=== PATIENT | male | born 1935 | race Caucasian/White ===

== ENCOUNTER 2016-12-11 11:37 | Inpatient (IN) | payer MEDICARE ==
[~2016-12-11] VITALS: Ht 165.1 cm; Wt 81.2 kg
[~2016-12-11 11:37] MED LIST: ALPRAZOLAM0.5 M1 PO; AMBIEN10 MG OR; AMLODIPINE BESYL5 MG PO; AMOXICILLIN/CL875 MG PO; ASPIRIN CHEWABL81 MG PO; ATORVASTATIN CA20 MG PO; AUGMENTINES600 PO; BABY ASPIRIN81 MG OR; BRILINTA90 MG PO; CELEBREX200 MG OR; CELEBREX200 MG PO; CITALOPRAM20 MG PO; CLONIDINE0.1 MG PO; CYANOCOBALAM1000 MCG IJ; CYANOCOBALAM1000 MCG IM; DARVOCET-N 100100 MG OR; DESYREL50 MG/TAB PO; DIAZEPAM2 M1 PO; DIAZEPAM2 MG OR; DIAZEPAM2 MG PO; DONEPEZIL5 MG PO; DULCOLAX5 MG PO; DUONEB INH; FINASTERIDE5 MG PO; FISH OIL500 MG OR; FISH OIL600 MG PO; FLOMAX0.4 MG OR; FLUARIX QUADRIV1 IN1 IM; FLUARIX QUADRIV1 INJ IM; FUROSEMIDE20 MG OR; GLUCOSAMINE1 TA1 OR; GLUCOSAMINE500 M1 PO; LEVOTHYROXIN25 MC1 PO; LIPITOR20 MG PO; LIPITOR80 MG PO; LISINOPRIL20 M1 PO; MECLIZINE25 MG PO; METO25TAB PO; METOPROL TAR25 M1 PO; MILK OF MAG30 ML/UDC PO; MIRALAX3350 NF PO; MULT VITAMI1 OR; MULTI 501 PO; MULTIVITAM10 PO; NYSTATIN100000 M1 PO; OXYBUTYNIN5 MG PO; PAROXETINE20 MG PO; PRAVASTATIN20 MG PO; PRESERVISION PO; PREVACID30 M1 OR; PROSCAR OR; RAPAFLO8 MG OR; REMERON30 MG OR; RISPERDAL2 MG PO; SIMVASTATIN20 MG OR; SIMVASTATIN20 MG PO; SLOW RELEASE IR45 MG PO; TAMSULOSIN0.4 MG PO; TRAMADOL HCL50 MG PO; TRANDATE200 MG OR; ULTRAM50 M1 PO; VALIUM2 MG PO; VESICARE10 MG PO; VITAMIN B-121000 MCG PO; VITAMIN D1000 UNI1 OR; ZOLPIDEM5 M1 PO; ZPAK PO; [UNRECOGNIZED DRUG - OTHER] PO; [UNRECOGNIZED DRUG - OTHER] PO
[2016-12-11 12:15] LABS: HEMATOCRIT 35.7 % (39.0-50.0); HEMOGLOBIN 11.8 g/dl (14.0-18.0); IMMATURE GRANULOCYTES 0.7 % (0.0-1.0); MEAN CELL VOLUME 94.2 fL CALC (80.0-100.0); MEAN CORPUSCULAR HGB 31.1 pG CALC (26.0-32.0); MEAN CORPUSCULAR HGB CONC 33.1 g/L CALC (32.0-36.0); NEUT# 3.48 thou/uL (1.82-7.42); RED BLOOD COUNT 3.79 mill/uL (4.70-6.10); RED CELL DISTRI WIDTH 12.2 % (11.5-15.5)
[2016-12-11 12:36] LABS: ALBUMIN 3.8 g/dL (3.2-5.0); ALKALINE PHOSPHATASE 102 u/l (38-126); BILIRUBIN, TOTAL 0.5 mg/dL (0.0-1.4); BUN 14 mg/dL (8-23); BUN/CREATININE RATIO 12 (12-20 (CALC)); CALCIUM 8.5 mg/dL (8.4-10.2); CARBON DIOXIDE 26 mmol/l (22-30); CHLORIDE 99 mmol/l (95-108); CREATININE 1.2 mg/dL (0.7-1.3); GFR 58 ML/MIN (>=60 (CALC)); GFR FOR AFR.AMER. > 60 ML/MIN (>=60 (CALC)); GLUCOSE 136 mg/dL (82-115); SGOT/AST 34 u/l (19-48); SGPT/ALT 88 u/l (11-66); SODIUM 133 mmol/l (137-146); TOTAL PROTEIN 6.3 g/dL (6.3-8.2)
[2016-12-11 12:39] LABS: ANION GAP 14 (6-22 (CALC)); POTASSIUM 5.7 mmol/l (3.5-5.1)
[2016-12-11 12:47] LABS: MYOGLOBIN 41 ng/mL (0 - 121)
[2016-12-11 16:20] VITALS: BP 186/90
[2016-12-11 18:57] VITALS: BP 148/85
[2016-12-11 23:47] VITALS: BP 146/79
[2016-12-12 03:59] VITALS: BP 159/84
[2016-12-12 07:43] VITALS: BP 138/67
[2016-12-12 08:32] LABS: ANION GAP 10 (6-22 (CALC)); BUN 15 mg/dL (8-23); BUN/CREATININE RATIO 15 (12-20 (CALC)); CALCIUM 8.5 mg/dL (8.4-10.2); CARBON DIOXIDE 30 mmol/l (22-30); CHLORIDE 100 mmol/l (95-108); GFR > 60 ML/MIN (>=60 (CALC)); GFR FOR AFR.AMER. > 60 ML/MIN (>=60 (CALC)); GLUCOSE 102 mg/dL (82-115); POTASSIUM 4.5 mmol/l (3.5-5.1); SODIUM 136 mmol/l (137-146)
[2016-12-12 11:00] VITALS: BP 162/62
[2016-12-12] MEDS ORDERED: METOPROL TAR25 M1 PO (12:10)
[2016-12-12] MEDS ORDERED: TRAZODONE50 MG PO (12:11)
[2016-12-12] MEDS ORDERED: SINGULAIR10 MG PO (12:14)
[2016-12-12] MEDS ORDERED: NAMENDA10 MG PO (12:14)
[2016-12-12] MEDS ORDERED: OLANZAPINE ODT15 MG PO (12:14)
[2016-12-12] MEDS ORDERED: PEPCID20 MG PO (12:15)
[2016-12-12] MEDS ORDERED: CELEBREX100 M1 PO (12:15)
[2016-12-12] MEDS ORDERED: FLUOXETINE40 MG PO (12:15)
[2016-12-12] MEDS ORDERED: LEVOTHYROXIN25 MC1 PO (12:16)
[2016-12-12 16:00] VITALS: BP 171/86
[2016-12-12 19:58] VITALS: BP 130/74
[2016-12-12 23:52] VITALS: BP 164/84
[2016-12-13 02:52] VITALS: BP 160/62
[2016-12-13 06:23] LABS: HEMOGLOBIN 11.6 g/dl (14.0-18.0); MEAN CELL VOLUME 94.3 fL CALC (80.0-100.0); MEAN CORPUSCULAR HGB 31.3 pG CALC (26.0-32.0); MEAN CORPUSCULAR HGB CONC 33.1 g/L CALC (32.0-36.0); RED BLOOD COUNT 3.71 mill/uL (4.70-6.10); RED CELL DISTRI WIDTH 12.3 % (11.5-15.5)
[2016-12-13 06:41] LABS: ANION GAP 13 (6-22 (CALC)); BUN 17 mg/dL (8-23); BUN/CREATININE RATIO 19 (12-20 (CALC)); CALCIUM 8.7 mg/dL (8.4-10.2); CARBON DIOXIDE 28 mmol/l (22-30); CHLORIDE 100 mmol/l (95-108); CREATININE 0.9 mg/dL (0.7-1.3); GFR > 60 ML/MIN (>=60 (CALC)); GFR FOR AFR.AMER. > 60 ML/MIN (>=60 (CALC)); GLUCOSE 118 mg/dL (82-115); POTASSIUM 4.4 mmol/l (3.5-5.1); SODIUM 137 mmol/l (137-146)
[2016-12-13 09:15] VITALS: BP 147/79
[2016-12-13 11:02] VITALS: BP 142/75
[2016-12-13] MEDS ORDERED: PREDNISONE10 MG PO (15:00)
[2016-12-13 15:20] VITALS: BP 125/71
[2016-12-13] MEDS ORDERED: IPRATROPIU0.5 MG/3 M NEB (17:21)
[2016-12-13] MEDS ORDERED: NEBULIZER COMPRESSOR (17:21)
== END 2016-12-13 19:11 | disposition home or self-care (01) | DRG 917 ==
LOC: ED 11:37 → ED-I 12:53 → ED 14:43 → MS2 14:44
PROVIDERS: Emergency Medicine; ADMIT Internal Medicine; ATTEND Internal Medicine
DX: T46.4X1A Poisoning by angiotensin-converting-enzyme inhibitors, accidental (unintentional), initial encounter (principal); J96.02 Acute respiratory failure with hypercapnia; J96.01 Acute respiratory failure with hypoxia; E87.1 Hypo-osmolality and hyponatremia; E87.5 Hyperkalemia; F03.90 Unspecified dementia, unspecified severity, without behavioral disturbance, psychotic disturbance, mood disturbance, and anxiety; T46.5X1A Poisoning by other antihypertensive drugs, accidental (unintentional), initial encounter; I10 Essential (primary) hypertension; E03.9 Hypothyroidism, unspecified; E78.5 Hyperlipidemia, unspecified; I25.10 Atherosclerotic heart disease of native coronary artery without angina pectoris; F41.1 Generalized anxiety disorder; F32.9 Major depressive disorder, single episode, unspecified; J44.9 Chronic obstructive pulmonary disease, unspecified; G47.00 Insomnia, unspecified; Z95.5 Presence of coronary angioplasty implant and graft; Z87.891 Personal history of nicotine dependence

== ENCOUNTER 2018-04-17 15:42 | Inpatient (IN) | payer MEDICARE ==
[~2018-04-17] VITALS: Ht 162.6 cm; Wt 72.6 kg
[~2018-04-17 15:42] MED LIST changes: +CELEBREX100 M1 PO; +FLUOXETINE40 MG PO; +IPRATROPIU0.5 MG/3 M NEB; +NAMENDA10 MG PO; +NEBULIZER COMPRESSOR; +OLANZAPINE ODT15 MG PO; +PEPCID20 MG PO; +PREDNISONE10 MG PO; +SINGULAIR10 MG PO; +TRAZODONE50 MG PO
--- NOTE | 2018-04-17 15:57 | NUR ---
PT TO ROOM # 14 VIA W/C
--- NOTE | 2018-04-17 16:00 | NUR ---
ASSIST TO POSITION OF COMFORT. TO BED WITHOUT DIFFICULTY
[2018-04-17 16:41] LABS: HEMATOCRIT 36.9 % (39.0-50.0); IMMATURE GRANULOCYTES 0.4 % (0.0-5.0); MEAN CELL VOLUME 92.5 fL CALC (80.0-100.0); MEAN CORPUSCULAR HGB 30.1 pG CALC (26.0-32.0); MEAN CORPUSCULAR HGB CONC 32.5 g/L CALC (32.0-36.0); NEUT# 3.36 thou/uL (1.82-7.42); RED BLOOD COUNT 3.99 mill/uL (4.70-6.10); RED CELL DISTRI WIDTH 12.5 % (11.5-15.5)
[2018-04-17 16:42] LABS: URINE BILIRUBIN - DIPSTICK NEGATIVE (NEGATIVE); URINE BLOOD DIPSTICK NEGATIVE (NEGATIVE); URINE COLOR YELLOW; URINE GLUCOSE - DIPSTICK NEGATIVE (NEGATIVE); URINE KETONE NEGATIVE (NEGATIVE); URINE LEUK ESTERASE NEGATIVE (NEGATIVE); URINE NITRITE - DIPSTICK NEGATIVE (Negative); URINE PROTEIN - DIPSTICK NEGATIVE (NEG-TRACE); URINE UROBILINOGEN - DIPSTICK 0.2 E.U./dL (0.2)
[2018-04-17] MEDS ORDERED: LEVOTHYROXIN75 MC1 PO (16:47)
[2018-04-17] MEDS ORDERED: TAMSULOSIN HCL0.4 MG PO (16:47)
[2018-04-17] MEDS ORDERED: LOPRESSOR25 M1 PO (16:48)
[2018-04-17] MEDS ORDERED: OLANZAPINE15 MG PO (16:49)
[2018-04-17] MEDS ORDERED: SIMBRINZA1 SUS OS (16:50)
[2018-04-17] MEDS ORDERED: LATANOPROST0.005 % OS (16:50)
[2018-04-17] MEDS ORDERED: SENNA-S1 TAB PO (16:51)
[2018-04-17] MEDS ORDERED: FINASTERIDE5 MG PO (16:52)
--- NOTE | 2018-04-17 17:00 | NUR ---
MEDICATED FOR BP NOTED. ER MD UPDATED ON CONDITION
[2018-04-17 17:02] LABS: ALBUMIN 3.5 g/dL (3.2-5.0); ALKALINE PHOSPHATASE 92 u/l (38-126); ANION GAP 10 (6-22 (CALC)); BILIRUBIN, TOTAL 0.4 mg/dL (0.0-1.4); BUN 9 mg/dL (8-23); BUN/CREATININE RATIO 11 (12-20 (CALC)); CARBON DIOXIDE 29 mmol/l (22-30); CHLORIDE 100 mmol/l (95-108); CREATININE 0.8 mg/dL (0.7-1.3); GFR > 60 ML/MIN (>=60 (CALC)); GFR FOR AFR.AMER. > 60 ML/MIN (>=60 (CALC)); LIPASE 98 u/l (23-300); POTASSIUM 4.3 mmol/l (3.5-5.1); SGOT/AST 27 u/l (19-48); SODIUM 134 mmol/l (137-146); TOTAL PROTEIN 6.2 g/dL (6.3-8.2)
--- NOTE | 2018-04-17 18:00 | NUR ---
TO CT SCAN VIA STRETCHER.
--- NOTE | 2018-04-17 18:49 | NUR ---
BEDSIDE REPORT TO SHANNON MENON, CARE RELINQUISHED
--- NOTE | 2018-04-17 18:53 | NUR ---
PT TO BE ADMITTED WAITING ON ORDERS.
--- NOTE | 2018-04-17 19:16 | NUR ---
BP DOWN TO 135/62, CARDENE DRIP STOPPED PER DR HERNANDEZ.
--- NOTE | 2018-04-17 19:38 | NUR ---
REPORT GIVEN TO SINAN MATUTE. STILL WAITING ON ORDERS
--- NOTE | 2018-04-17 20:00 | NUR ---
Admission Note Report Given to: JUJU Transported by: Wheelchair X Stretcher Transported with: X Nurse Transporter X Patent IV O2 X Entry Level Sales Associate [id number] URINE DRAINED FROM NUNEZ BAG.
--- NOTE | 2018-04-17 20:10 | NUR ---
PT. ARRIVES VIA STRETCHER FROM ER. AWAKE, ALERT, ORIENTED X 3. HOLT. VIKTORIYA. SLOW STEADY GAIT FROM ER STRETCHER TO STANDING SCALE AND THEN TO ICU BED 5. RESPS EVEN AND UNLABORED. SKIN WARM AND DRY. AFEBRILE. PT. REPOSITIONED FOR COMFORT. DENIES ABD PAIN AT THIS TIME. STATES HIS PAIN WAS LOW, PUBIC AREA IN NATURE AND IS RESOLVED SINCE NUNEZ CATHETER PLACEMENT. BP ELEVATED ON ARRIVAL AT 180 SYSTOLIC. WILL CONTINUE TO MONITOR. PULSES INTACT. BOWEL SOUND PRESENT. S1,S2. NSR. CALL LIGHT AND BED CONTROLS EXPLAINED TO PATIENT AND CALL LIGHT PLACED WITHIN REACH. WILL CONTINUE TO ASSESS.
[2018-04-17 20:15] VITALS: BP 188/82
[2018-04-17 20:30] VITALS: BP 154/78
[2018-04-17 20:45] VITALS: BP 152/75
[2018-04-17 21:00] VITALS: BP 137/72
[2018-04-17 22:00] VITALS: BP 128/67
--- NOTE | 2018-04-17 22:28 | NUR ---
PT. RESTING IN BED WITH EYES CLOSED IN NO DISTRESS. BP REMAINS STABLE, WILL CONTINUE TO MONITOR.
--- NOTE | 2018-04-17 23:06 | NUR ---
PT. REPOSITIONED TO LT. SIDE FOR COMFORT. DENIES COMPLAINTS OF PAIN OR OTHER NEED AT THIS TIME. CALL LIGHT REMAINS WITHIN REACH. BP/HR STABLE. WILL CONTINUE TO MONITOR.
--- NOTE | 2018-04-17 23:07 | NUR ---
PT. RESTING IN BED WITH EYES CLOSED IN NO DISTRESS. CALL LIGHT REMAINS WITHIN REACH. BP SLIGHTLY LOW AT 97 SYSTOLIC. WILL CONTINUE TO MONITOR.
[2018-04-18] VITALS (12 sets, daily range): BP systolic 92–173; BP diastolic 57–113
--- NOTE | 2018-04-18 00:24 | NUR ---
LAB AT BEDSIDE AT THIS TIME TO DRAW PATIENT. PT. REMAINS EASILY AROUSABLE TO LIGHT VERBAL STIMULI. CALL LIGHT REMAINS WITHIN REACH. WILL CONTINUE TO MONITOR.
--- NOTE | 2018-04-18 02:15 | NUR ---
PT. REMAINS STABLE ON THE MONITOR. SINUS GEOFF IN THE 50'S. REPOSITIONED FOR COMFORT. PT. SLIGHTLY HYPOTENSIVE AT THIS TIME. RESTING WITH EYES CLOSED. DENIES COMPLAINTS OF PAIN OR NEED. WILL CONTINUE TO MONITOR.
--- NOTE | 2018-04-18 04:05 | NUR ---
PT. PROVIDED WITH WATER AT THIS TIME. ASSISTED TO TURN TO RT. SIDE. PT. DENIES COMPLAINTS OF PAIN OR NEED AT THIS TIME. BP SLIGHTLY LOW AT THIS TIME. WILL CONTINUE TO CLOSELY MONITOR. CALL LIGHT PLACED BACK WITHIN REACH.
[2018-04-18 06:33] LABS: CHOLESTEROL HDL RATIO 3.7 (<4.4 (CALC))
--- NOTE | 2018-04-18 07:00 | NUR ---
pt awake in bed; no apparent distress noted; assessment completed at this time; pt alert to person; oriented to month after several prompts; slow to respond to questions asked per staff; pt admits to pain all over "from lying in the bed too long"; repositioned for comfort; denies n/v; resp even and unlabored; lungs clear bilat; skin color wnl; ra; hr reg; strong pulses; no edema noted; sr on monitor; abd soft with bs present; no bm noted per functional tester typewriters; pt admits to abd pain when palpated to lower quads; yancey to gravity draining clear yellow urine; cath johnson intact; #22 flushed and patent to lfa; no redness or edema noted at site; plan of care/ meds explained; repositioned; call light within reach; will continue to monitor
--- NOTE | 2018-04-18 07:30 | NUR ---
awake; up to bsc as per request; weak slow gait noted; no bm noted per fiction and nonfiction prose writer, only flatus; complete linen change; assisted bath and catheter care per fiction and nonfiction prose writer; back to bed wiht all monitoring attachments explained and reconnected; call light within reach; will continue to monitor
--- NOTE | 2018-04-18 08:45 | NUR ---
am meds explained and administered; repositioned for comfort; medicated with tylenol for back/general discomfort; call light within reach; will continue to monitor
--- NOTE | 2018-04-18 09:30 | NUR ---
daughter present at bedside; copy of living will/poa placed on chart; daughter updated in status; will continue to monitor
--- NOTE | 2018-04-18 10:14 | NUR ---
awake in bed; family x2 present at bedside; no distress noted; pt admits to no relief from tylenol; repositioned; iv intact; call light within reach; will continue to monitor
--- NOTE | 2018-04-18 11:00 | NUR ---
Dr Parisi present at bedside to assess pt and discuss plan of care
--- NOTE | 2018-04-18 11:13 | NUR ---
PT Emma called per financial underwriter in regards to swallow eval order; therapist confirmed as available today
[2018-04-18 11:19] LABS: HEMATOCRIT 34.6 % (39.0-50.0); HEMOGLOBIN 11.3 g/dl (14.0-18.0); IMMATURE GRANULOCYTES 0.2 % (0.0-5.0); MEAN CORPUSCULAR HGB 30.1 pG CALC (26.0-32.0); MEAN CORPUSCULAR HGB CONC 32.7 g/L CALC (32.0-36.0); NEUT# 3.09 thou/uL (1.82-7.42); RED BLOOD COUNT 3.76 mill/uL (4.70-6.10); RED CELL DISTRI WIDTH 12.9 % (11.5-15.5)
--- NOTE | 2018-04-18 11:19 | NUR ---
per PT Jenkins speech/swallow eval order received
[2018-04-18 11:22] LABS: ALBUMIN 2.9 g/dL (3.2-5.0); ALKALINE PHOSPHATASE 80 u/l (38-126); BILIRUBIN, TOTAL 0.4 mg/dL (0.0-1.4); BUN 9 mg/dL (8-23); BUN/CREATININE RATIO 12 (12-20 (CALC)); CARBON DIOXIDE 26 mmol/l (22-30); CREATININE 0.7 mg/dL (0.7-1.3); GFR > 60 ML/MIN (>=60 (CALC)); GFR FOR AFR.AMER. > 60 ML/MIN (>=60 (CALC)); POTASSIUM 3.9 mmol/l (3.5-5.1); SGOT/AST 23 u/l (19-48); SODIUM 134 mmol/l (137-146); TOTAL PROTEIN 5.4 g/dL (6.3-8.2)
[2018-04-18 11:23] LABS: ANION GAP 12 (6-22 (CALC)); CHLORIDE 100 mmol/l (95-108)
--- NOTE | 2018-04-18 12:03 | NUR ---
awake in bed; offers no complaints; repositions self frequently; iv patent; fluids infusing without complication; no redness or edema noted at site; sb occ pvc on monitor; yancey to gravity; NPO continues; call light within reach; will continue to monitor
--- NOTE | 2018-04-18 13:23 | NUR ---
Namita Speech Therapist at bedside for swallow eval
--- NOTE | 2018-04-18 13:50 | NUR ---
Mr. Arizmendi is an 83 year old male who was admitted via ER with complaints of abdominal pain. He has the diagnoses of SIADH, major depression, pseudodementia, osteoarthritis, hyperlipedemia, dyspnea upon exertion with hypoxia and hypercapnia, COPD and HTN. An order was received for dysphagia evaluation due to coughing with intake and reports of a history of swallowing difficulties. Upon entering room, Mr. Arizmendi was sleeping but easily aroused to auditory stimulus. He was oriented to self and month only. He could not provide his location or the reason for his hospitalization. Oral Mechanism exam revealed patient to be edentulous with self report of use of dentures. Lip seal was midline and adequate. ROM of lips and tongue were WNL. Cough was strong and could be elicited volitionally. Right cheek appeared slightly swollen and red but patient denied pain with palpation. Patient was given a 1 mL of water and swallow was delayed without coughing. Patient was allowed 1 small sip of water via straw and though swallow was audible, no coughing was observed and vocal quality was clear. Patient was given 1 tsp of applesauce and he manipulated the bolus in his mouth and swallowed efficiently. He was fed 3 oz of applesauce with time to clear and swallow between bolus and no coughing or overt signs of aspiration were observed. Oxygen saturation remained at 96 throughout evaluation. Recommendations: Advance to puree diet with bedside assistance. Position at 90 degree angle for all intake and for 30 minutes after intake. Verbal cues to cough and clear if "wet" quality to voice is observed. Verbal cues to dry swallow between bolus/sips as needed. Prompt to sweep bucal cavitites with tongue to clear residue after meals and perform oral care frequently. When dentures are available, soft mechanical foods may be attempted with the above precautions. Discontinue soft mechanical if overt choking, coughing, wheezing, or persistent vocal quality is observed. Contact HATCHERY HELPER via telephone prn. Number on file at nurses' station. Thank you for this referral, Namita Padilla M.A., [facility]-HATCHERY HELPER
--- NOTE | 2018-04-18 13:58 | NUR ---
awake in bed; complaints of back pain; pt to be medicated with tramadol; iv patent; fluids infusing without complication; no redness or edema noted at site; yancey to gravity; sr on monitor; repositioned self; call light within reach; will continue to monitor
--- NOTE | 2018-04-18 14:56 | NUR ---
Dr Parisi informed of speech therapist recommendations; pureed diet to be ordered
--- NOTE | 2018-04-18 16:00 | NUR ---
awake in bed; offers no complaints; no distress noted; resp even and unlabored; iv patent; fluids infusing without complication; no redness or edema noted at site; sr-sb on monitor; call light within reach; will continue to monitor
--- NOTE | 2018-04-18 17:45 | NUR ---
awake in bed; repositioned to high tellez's position for dinner; pt offers no complaints; no distress noted; sr on monitor; yancey to gravity; bed in lowest position; call light within reach
--- NOTE | 2018-04-18 19:15 | NUR ---
awake. denies c/o. awake overnight monitor shows sinus rhythm pvcs. #22 lfa d51/2ns infusing @ 75cchr. yancey cath in place. ueine clear yellow. fall precautions cont.
[2018-04-19] VITALS (8 sets, daily range): BP systolic 110–172; BP diastolic 56–82
--- NOTE | 2018-04-19 00:01 | NUR ---
eyes closed. no distress. gambling monitor shows sinus rhythm pvcs.
--- NOTE | 2018-04-19 04:00 | NUR ---
eyes closed. resp even & unlabored. no apparent distress. night monitor shows sinus violeta pvcs.
--- NOTE | 2018-04-19 05:00 | NUR ---
lab here. blood drawn.
[2018-04-19 05:25] LABS: ALBUMIN 2.8 g/dL (3.2-5.0); ALKALINE PHOSPHATASE 75 u/l (38-126); ANION GAP 10 (6-22 (CALC)); BILIRUBIN, TOTAL 0.4 mg/dL (0.0-1.4); BUN 8 mg/dL (8-23); BUN/CREATININE RATIO 12 (12-20 (CALC)); CARBON DIOXIDE 28 mmol/l (22-30); CHLORIDE 97 mmol/l (95-108); CREATININE 0.7 mg/dL (0.7-1.3); GFR > 60 ML/MIN (>=60 (CALC)); GFR FOR AFR.AMER. > 60 ML/MIN (>=60 (CALC)); MAGNESIUM 1.8 mg/dL (1.6-2.3); POTASSIUM 3.6 mmol/l (3.5-5.1); SGOT/AST 19 u/l (19-48); SODIUM 131 mmol/l (137-146); TOTAL PROTEIN 5.2 g/dL (6.3-8.2)
[2018-04-19 05:41] LABS: HEMATOCRIT 33.3 % (39.0-50.0); HEMOGLOBIN 11.1 g/dl (14.0-18.0); IMMATURE GRANULOCYTES 0.4 % (0.0-5.0); MEAN CELL VOLUME 90.7 fL CALC (80.0-100.0); MEAN CORPUSCULAR HGB 30.2 pG CALC (26.0-32.0); MEAN CORPUSCULAR HGB CONC 33.3 g/L CALC (32.0-36.0); NEUT# 2.34 thou/uL (1.82-7.42); RED BLOOD COUNT 3.67 mill/uL (4.70-6.10); RED CELL DISTRI WIDTH 12.2 % (11.5-15.5)
--- NOTE | 2018-04-19 07:15 | NUR ---
pt awake in bed; no apparent distress noted; pt offers no complaints; assessment completed at this time; pt alert to person, month and city; denies pain; no n/v noted; resp even and unlabored; lungs clear; skin color wnl; ra; hr reg; strong pulses; no edema noted; sr on monitor; abd soft with bs present; no bm noted per physician underwriter; pt continues with passing flatus; yancey to gravity draining well; cath johnson intact; #22 in lfa patent with ivf infusing without complication; no redness or edema noted at site; plan of care/ am meds explained; pt repositioned for comfort; call light within reach; will continue to monitor
--- NOTE | 2018-04-19 08:13 | NUR ---
awake; up to bsc; no apparent distress noted; pt offers no complaints; iv patent; no redness or edema noted at site; call light within reach; will continue to monitor
--- NOTE | 2018-04-19 08:55 | NUR ---
am meds explained and administered; assisted to bsc for bm; call light within reach; will continue to monitor
--- NOTE | 2018-04-19 10:00 | NUR ---
resting in bed with eyes closed; no apparent distress noted; sb 53 on monitor; yancey to gravity; iv patent; fluids infusing withuot complication; no redness or edema noted at site; call light within reach; will continue to monitor
--- NOTE | 2018-04-19 10:39 | NUR ---
Dr Padilla present at bedside to assess pt and discuss plan of care
--- NOTE | 2018-04-19 11:40 | NUR ---
moe Issa present at bedside; daughter requesting pt be discharged to rehab; mal Rodriguez informed; will notify
--- NOTE | 2018-04-19 12:15 | NUR ---
awake sitting on side of bed eating lunch; no distress noted; pt offers no complaints; iv patent; fluids infusing without complication; no redness or edema noted at site; yancey to gravity; sb on monitor; daughter Maegan present at bedside; will continue to monitor
--- NOTE | 2018-04-19 13:57 | NUR ---
resting in bed with eyes closed; easily aroused; offers no complaints; denies pain; resp even and unlabored; iv patent; no redness or edema noted at site; yancey to gravity; sb 44-51 on monitor; call light within reach; will continue to monitor
--- NOTE | 2018-04-19 14:18 | NUR ---
report given to Simone Dick RN
--- NOTE | 2018-04-19 14:50 | NUR ---
pt transferred to med surg tele room 291 via wc with personal items; update given to Simone Dick RN
--- NOTE | 2018-04-19 15:55 | NUR ---
PT CAME FROM ICU VIA WHEELHAIR AND DEEP TISSUE MASSAGE THERAPIST IN ROOM OBTAIN VS. REPS EVEN AND UNLABORED. TELE IN PLACE. IVF INFUSING WELL . PT IS A&O X1. BED ALARM IN PLACE FOR SAFETY. SAFETY PRECAUTIONS REINOFRCED AND CALL LIGHT IN REACH.
--- NOTE | 2018-04-19 20:00 | NUR ---
PATIENT RESTING IN BED AT THIS TIME-AWAKE ALERT AND ORIENTED TO PERSON. PATIENT WITH NO COMPLAINTS AT THIS TIME. TELE MONITOR IN PLACE. IV SIT TO LEFT FOREARM INTACT WITH IVF D51/2NS PATENT AND INFUSING AT 75CC/HR. SITE APPEARS HEALTHY AT THIS TIME. NUNEZ CATH PATENT AND DRAINING AYALA URINE. BED ALARM IN PLACE FOR PATIENT SAFETY. SAFETY PRECAUTIONS REINFORCED. WITH PATIENT. CALL LIGHT IN REACH. WILL CONT TO MONITOR.
--- NOTE | 2018-04-19 22:30 | NUR ---
RECIEVED CALL FROM ANNA IN ER-PATIENT CHANGED RHYTHM TO A-FIB 6O'S. EKG DONE AND SHOWS SR WITH 1DEGREE AV BLOCK. PATIENT IS ASYMPTOMATIC AT THIS TIME. CALL LIGHT IN REACH. WILL CONT TO MONITOR.
[2018-04-20] VITALS (7 sets, daily range): BP systolic 98–180; BP diastolic 62–83
--- NOTE | 2018-04-20 04:00 | NUR ---
APPEARS SLEEPING AT THIS TIME WITH EYES CLOSED. RESP ARE EVEN AND UNLABORED. NUNEZ PATENT AND DRAINING CLEAR YELLOW URINE. CALL LIGHT IN REACH. WILL CONT TO MONITOR.
[2018-04-20 05:05] LABS: HEMATOCRIT 32.5 % (39.0-50.0); MEAN CELL VOLUME 90.3 fL CALC (80.0-100.0); MEAN CORPUSCULAR HGB 30.6 pG CALC (26.0-32.0); MEAN CORPUSCULAR HGB CONC 33.8 g/L CALC (32.0-36.0); RED BLOOD COUNT 3.6 mill/uL (4.70-6.10); RED CELL DISTRI WIDTH 12.3 % (11.5-15.5)
[2018-04-20 05:14] LABS: ANION GAP 9 (6-22 (CALC)); BUN 8 mg/dL (8-23); BUN/CREATININE RATIO 12 (12-20 (CALC)); CARBON DIOXIDE 28 mmol/l (22-30); CHLORIDE 99 mmol/l (95-108); CREATININE 0.7 mg/dL (0.7-1.3); GFR > 60 ML/MIN (>=60 (CALC)); GFR FOR AFR.AMER. > 60 ML/MIN (>=60 (CALC)); MAGNESIUM 1.9 mg/dL (1.6-2.3); POTASSIUM 3.9 mmol/l (3.5-5.1); SODIUM 133 mmol/l (137-146)
--- NOTE | 2018-04-20 07:02 | NUR ---
REPORT RECEIVED BY ROSIE. PT IS SLEEPING IN BED WITH NO S/S OF DISTRESS NOTED. CALL LIGHT IN REACH.
--- NOTE | 2018-04-20 08:01 | NUR ---
ASSISTED PT TO SIT IN THE SIDE OF THE BED. ASSESSMENT DONE TELE IN PLACE. PT IS A&O X1. PT DENIES PAIN AT THIS TIME. SETUP PT FOR BREAKFAST. BED ALARM IN PLACE. SAFETY PRECAUTIONS REINFORCED AND CALL LIGHT IN REACH.
--- NOTE | 2018-04-20 09:00 | NUR ---
PT SITTING IN BATHROOM TRYING TO HAVE A BOWEL MOVEMENT. PT WAS ASKED BY MODERN LANGUAGES PROFESSOR IF HE WOULD LIKE TO GET A SHOWER. PT DIDNT KNOW WHAT HE WANTED AT THAT TIME. MODERN LANGUAGES PROFESSOR ASSISTED PT BACK TO BED AFTER NO SUCCESS OF A BOWEL MOVEMENT. MODERN LANGUAGES PROFESSOR GAVE PT PRUNE JUICE AND ORANGE JUICE HEATED UP TO STIMULATE BOWEL MOVEMENT. TOLD PT WE WILL SEE IF THAT DOES THE TRICK. PT UNDERSTOOD. MODERN LANGUAGES PROFESSOR THAN TOLD PT WHEN HE GOES TO TRY AGAIN HAVING A BOWEL MOVEMENT I WILL GET HIM IN THE SHOWER AT THAT TIME. CALL ABDUL IN REACH.
[2018-04-20] MEDS ORDERED: AMLODIPINE BESYL5 MG PO (11:22)
[2018-04-20] MEDS ORDERED: OLANZAPINE5 MG PO (11:25)
[2018-04-20] MEDS ORDERED: SINGULAIR10 MG PO (11:27)
--- NOTE | 2018-04-20 12:23 | NUR ---
ASSISTED PT TO THE BATHROOM WITH NO S/S OF DISTRESS NOTED. CALL LIGHT IN REACH. PT DENIES ANY OTHER NEEDS AT THIS TIME.
--- NOTE | 2018-04-20 16:32 | NUR ---
MEDICATED PT WITH TYLENOL FOR PAIN IN BACK 07/23 SEE EMAR. PT DENIES ANY OTHER NEEDS AT THIS TIME. BED ALARM IN PLACE AND CALL LIGHT IN REACH.
--- NOTE | 2018-04-20 19:30 | NUR ---
PATIENT RESTING IN BED POSITIONED ON LEFT SIDE WITH EYES CLOSED. RESP ARE EVEN AND UNLABORED. TELE MONITOR IN PLACE. NUNEZ CATH PATENT AND DRAINING YELLOW URINE. IV SITE TO LEFT FOREARM INTACT WITH IVF D51/2NS PATENT AND INFUSING AT 75CC/HR. SITE APPEARS HEALTHY AT THIS TIME. BED ALARM IN PLACE FOR PATIENT SAFETY. CALL LIGHT IN REACH. WILL CONT TO MONITOR.
--- NOTE | 2018-04-21 01:11 | NUR ---
PATIENT SOMEWHAT RESTLESS TONIGHT IN BED. NON-PRODUCTIVE COUGH NOTED. PATIENT MEDICATED FOR GENERALIZED PAIN WITH ULTRAM 50MG PO AND FOR SLEEP WITH SONATA 5MG PO. PATIENT REPOSITIONED IN BED. IV SITE TO LEFT FOREARM REMAINS INTACT WITH IVF PATENT AND INFUSING AT 75CC/HR. SITE CONT TO BE HEALTHY. TELE MONITOR IN PLACE. NUNEZ PATENT AND DRAINING YELLOW URINE. BED ALARM IN PLACE FOR PATIENT SAFETY. CALL LIGHT IN REACH. WILL CONT TO MONITOR.
--- NOTE | 2018-04-21 03:44 | NUR ---
PATIENT RESTING QUIETLY IN BED AT THIS TIME. TELE MONITOR IN PLACE. NUNEZ CATH PATENT AND DRAING YELLOW URINE. BED ALARM IN PLACE FOR PATIENT SAFETY. CALL LIGHT IN REACH. WILL CONT NICOLE MONITOR.
[2018-04-21 05:32] VITALS: BP 182/93
[2018-04-21 08:02] VITALS: BP 135/68
--- NOTE | 2018-04-21 08:11 | NUR ---
ASSESSMENT COMPLETED; PT. SITTING UP IN CHAIR EATING BREAKFAST; NO DISTRESS NOTED; ASSESSMENT COMPLETED; NUNEZ CATHETER INTACT AND DRAINING AT GRAVITY LEVEL; PT. UP TO THE BATHRROM AND INSTRUCTED TO PULL CORD WHEN DONE.
--- NOTE | 2018-04-21 08:49 | NUR ---
PT. C/O LOWER BACK PAIN ; MEDICATED WITH ORDERED TRAMADOL; WILL REASSESS; CALL LIGHT IS IN REACH.
--- NOTE | 2018-04-21 10:43 | NUR ---
PT. SITTING UP IN CHAIR WITH NO DISTRESS NOTED; DENIES NEEDS/PAIN. CALL LIGHT IS IN REACH.
[2018-04-21 11:00] VITALS: BP 99/60
--- NOTE | 2018-04-21 11:55 | NUR ---
PT. SITTING UP IN CHAIR; NO DISTRESS NOTED; DENIES NEEDS. CALL LIGHT IS IN REACH.
--- NOTE | 2018-04-21 13:08 | NUR ---
PT. C/O GONZALES AND UPSET STOMACHE D/T CONSTIPATION; MEDICATED WITH ORDERED TYLENOL AND MOM; WILL CONTINUE TO MONITOR.
[2018-04-21] MEDS ORDERED: TRAZODONE HCL50 MG PO (14:47)
[2018-04-21 15:10] VITALS: BP 103/60
--- NOTE | 2018-04-21 16:00 | NUR ---
IV SITE REMOVED; CATHETER TIP IS INTACT; TELEMETRY REMOVED;
--- NOTE | 2018-04-21 16:10 | NUR ---
REPORT CALLED TO RUSSELL JAIME, AT [facility]; ALL QUESTIONS ANSWERED.
== END 2018-04-21 16:34 | DRG 305 ==
LOC: ED 15:42 → ED-I 18:32 → ED 19:02 → ICU 19:03 → MS2 04-19 14:46
PROVIDERS: Family Medicine; Internal Medicine Nephrology; Nurse Practitioner Family; ADMIT Internal Medicine; ATTEND Internal Medicine
PROC: 0T9B70Z Drainage of Bladder with Drainage Device, Via Natural or Artificial Opening (ICD-10-PCS; principal; 2018-04-17)
DX: I16.0 Hypertensive urgency (principal); I10 Essential (primary) hypertension; N40.1 Benign prostatic hyperplasia with lower urinary tract symptoms; R33.8 Other retention of urine; I25.10 Atherosclerotic heart disease of native coronary artery without angina pectoris; G30.9 Alzheimer's disease, unspecified; F02.80 Dementia in other diseases classified elsewhere, unspecified severity, without behavioral disturbance, psychotic disturbance, mood disturbance, and anxiety; R13.10 Dysphagia, unspecified; E03.9 Hypothyroidism, unspecified; K21.9 Gastro-esophageal reflux disease without esophagitis; L27.1 Localized skin eruption due to drugs and medicaments taken internally; T46.1X5A Adverse effect of calcium-channel blockers, initial encounter; F32.9 Major depressive disorder, single episode, unspecified; E78.5 Hyperlipidemia, unspecified; F41.1 Generalized anxiety disorder; J44.9 Chronic obstructive pulmonary disease, unspecified; Z95.5 Presence of coronary angioplasty implant and graft; Z87.11 Personal history of peptic ulcer disease
CPT/HCPCS: J1650; S0164

== ENCOUNTER 2018-04-29 11:22 | Emergency (ER) | payer MEDICARE ==
[~2018-04-29] VITALS: Ht 162.6 cm; Wt 68.2 kg
[~2018-04-29 11:22] MED LIST changes: +LATANOPROST0.005 % OS; +LEVOTHYROXIN75 MC1 PO; +LOPRESSOR25 M1 PO; +OLANZAPINE15 MG PO; +OLANZAPINE5 MG PO; +SENNA-S1 TAB PO; +SIMBRINZA1 SUS OS; +TAMSULOSIN HCL0.4 MG PO; +TRAZODONE HCL50 MG PO
[2018-04-29 14:47] VITALS: BP 141/77
== END 2018-04-29 14:48 ==
LOC: ED 11:22
DX: I95.2 Hypotension due to drugs (principal); T40.2X5A Adverse effect of other opioids, initial encounter; T42.4X5A Adverse effect of benzodiazepines, initial encounter; I10 Essential (primary) hypertension; E78.00 Pure hypercholesterolemia, unspecified; Y92.129 Unspecified place in nursing home as the place of occurrence of the external cause; Z87.440 Personal history of urinary (tract) infections; Z87.01 Personal history of pneumonia (recurrent); Z95.5 Presence of coronary angioplasty implant and graft

== ENCOUNTER 2018-06-25 12:25 | Emergency (ER) | payer MEDICARE ==
[~2018-06-25] VITALS: Ht 162.6 cm; Wt 95.0 kg
[2018-06-25 13:11] LABS: HEMATOCRIT 35.9 % (39.0-50.0); HEMOGLOBIN 11.3 g/dl (14.0-18.0); IMMATURE GRANULOCYTES 0.4 % (0.0-5.0); MEAN CELL VOLUME 94.2 fL CALC (80.0-100.0); MEAN CORPUSCULAR HGB 29.7 pG CALC (26.0-32.0); MEAN CORPUSCULAR HGB CONC 31.5 g/L CALC (32.0-36.0); RED BLOOD COUNT 3.81 mill/uL (4.70-6.10); RED CELL DISTRI WIDTH 12.5 % (11.5-15.5)
[2018-06-25 13:14] LABS: ANION GAP 11 (6-22 (CALC)); BUN 10 mg/dL (8-23); BUN/CREATININE RATIO 11 (12-20 (CALC)); CARBON DIOXIDE 28 mmol/l (22-30); CHLORIDE 100 mmol/l (95-108); CREATININE 0.9 mg/dL (0.7-1.3); GFR > 60 ML/MIN (>=60 (CALC)); GFR FOR AFR.AMER. > 60 ML/MIN (>=60 (CALC)); SODIUM 134 mmol/l (137-146)
[2018-06-25 13:15] LABS: POTASSIUM 5.1 mmol/l (3.5-5.1)
[2018-06-25 13:36] VITALS: BP 165/82
== END 2018-06-25 13:48 | disposition home or self-care (01) ==
LOC: ED 12:25
PROVIDERS: Family Medicine
DX: R53.1 Weakness (principal); I10 Essential (primary) hypertension; Z95.5 Presence of coronary angioplasty implant and graft

== ENCOUNTER 2018-08-19 14:46 | Inpatient (IN) | payer MEDICARE ==
[~2018-08-19] VITALS: Ht 162.6 cm; Wt 69.6 kg
--- NOTE | 2018-08-19 14:48 | NUR ---
TO ROOM 10 VIA W/C
--- NOTE | 2018-08-19 15:00 | NUR ---
NIH COMPLETED BY SELF AND DR HERNANDEZ. 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
--- NOTE | 2018-08-19 15:30 | NUR ---
PT AT RADIOLOGY FOR CT, SOME GEOFF CARDIA NOTED, DAUGHTER REMAINS AT BEDSIDE
[2018-08-19 15:31] LABS: GFR > 60 ML/MIN (>=60 (CALC)); GFR FOR AFR.AMER. > 60 ML/MIN (>=60 (CALC)); HEMATOCRIT 40.1 % (39.0-50.0); HEMOGLOBIN 12.6 g/dl (14.0-18.0); IMMATURE GRANULOCYTES 0.6 % (0.0-5.0); MEAN CELL VOLUME 92.4 fL CALC (80.0-100.0); MEAN CORPUSCULAR HGB CONC 31.4 g/L CALC (32.0-36.0); NEUT# 2.78 thou/uL (1.82-7.42); RED BLOOD COUNT 4.34 mill/uL (4.70-6.10); RED CELL DISTRI WIDTH 12.5 % (11.5-15.5)
[2018-08-19] MEDS ORDERED: ZYRTEC10 MG PO (15:32)
[2018-08-19 15:42] LABS: ANION GAP 13 (6-22 (CALC)); BILIRUBIN, TOTAL 0.3 mg/dL (0.0-1.4); BUN 15 mg/dL (8-23); BUN/CREATININE RATIO 15 (12-20 (CALC)); CARBON DIOXIDE 26 mmol/l (22-30); CHLORIDE 100 mmol/l (95-108); GFR > 60 ML/MIN (>=60 (CALC)); GFR FOR AFR.AMER. > 60 ML/MIN (>=60 (CALC)); LIPASE 85 u/l (23-300); POTASSIUM 4.6 mmol/l (3.5-5.1); SODIUM 134 mmol/l (137-146)
[2018-08-19 15:45] LABS: ALKALINE PHOSPHATASE 117 u/l (38-126); SGOT/AST 40 u/l (19-48)
[2018-08-19] MEDS ORDERED: TIMOLOL 0.5%5 ML OU (15:52)
--- NOTE | 2018-08-19 16:04 | NUR ---
URINAL PLACED FOR PATIENT TO PROVIDE URINE SPECIMENT, PT INSTRUCTED TO CALL WHEN READY
--- NOTE | 2018-08-19 16:15 | NUR ---
PT ABLE TO PROVIDE URINE SPECIMEN VIA URINAL, SPECIMEN SENT TO LAB ORDERED. AT BEDSIDE DISCUSSING PROS AND CONS OF IODINE DYE USAGE FOR CT WITH CONTRAST (PT HAS ALLERGY TO IODINE), DAUGHTER AT BEDSIDE FOR DISCUSSION/DECISION ALL QUESTIONS ANSWERED. PT DECIDES TO TAKE PREVENTIATIVE MEDICATIONS AND HAVE SCNA COMPLETED
[2018-08-19 16:29] LABS: URINE BILIRUBIN - DIPSTICK NEGATIVE (NEGATIVE); URINE BLOOD DIPSTICK NEGATIVE (NEGATIVE); URINE COLOR YELLOW; URINE GLUCOSE - DIPSTICK NEGATIVE (NEGATIVE); URINE KETONE TRACE mg/dL (NEGATIVE); URINE LEUK ESTERASE NEGATIVE (NEGATIVE); URINE NITRITE - DIPSTICK NEGATIVE (Negative); URINE PROTEIN - DIPSTICK NEGATIVE (NEG-TRACE); URINE SPECIFIC GRAVITY 1.025; URINE UROBILINOGEN - DIPSTICK 0.2 E.U./dL (0.2)
--- NOTE | 2018-08-19 16:29 | NUR ---
PT MEDICATED WITH SOLUMEDROL AND BENADRYL ORDERED.
--- NOTE | 2018-08-19 18:42 | NUR ---
SET UP ASSIST PROVIDED WITH FOOD TRAY
--- NOTE | 2018-08-19 19:00 | NUR ---
REPORT CALLED TO JC ON MED SURG
--- NOTE | 2018-08-19 19:05 | NUR ---
REPORT RECEIVED. PT WAITING TO GO UPSTAIRS. EATING DINNER.
[2018-08-19 19:35] VITALS: BP 135/69
--- NOTE | 2018-08-19 19:35 | NUR ---
PT FINISHED DINNER. TRYING TO GET OUT OF BED. STATES HE JUST WET THE BED. PT HAD PULL UP ON...DID LEAK ONTO BED IT WAS HALF WAY DOWN. PT CHANGED. CREASE IS ESCORIATED. CLEANSED AND BARRIER CREAM APPLIED. DIAPER APPLIED. PT TRANSFERRED TO FLOOR VIA STRETCHER. PORTABLE MONITOR.
--- NOTE | 2018-08-19 19:35 | NUR ---
PT ARIVED TO THE FLOOR VIA STRETCHER ACCOMPANIED BY ER STAFF. PT SLID FROM STRETCHER TO BED X4 ASSIST. PT ALERT AND ORIENTED. RESPIRATIONS SHALLOW ON ROOM AIR, LUNGS SOUND DIMINISHED. SKINS INTACT. PEDAL PULSE WAEK. PT ORIENTED TO ROOM AND CALL ABDUL SYSTEM. PT ENCOURAGED TO USE CALL ABDUL IF ANY NEEDS SHOULD ARISE. BED ALARM ACTIVE FOR PT SAFETY. WILL CONTINUE TO MONITOR.
[2018-08-19 23:39] VITALS: BP 127/73
--- NOTE | 2018-08-20 01:57 | NUR ---
PT RESTING IN BED WITH EYES CLOSED. RESPIRATIONS SHALLOW ON RA. TELE IN PLACE. SAFETY PRECAUTIONS IN PLACE. WILL CONTINUE TO MONITOR.
[2018-08-20 03:55] VITALS: BP 166/85
--- NOTE | 2018-08-20 04:00 | NUR ---
PT REPOSTIONED IN BED. RESPIRATIONS SHALLOW ON RM AIR. PT DENIES ANY NEEDS AT THIS TIME. BED ALARM ACTIVE FOR PT SAFETY. WILL CONTINUE TO MONITOR.
[2018-08-20 05:55] LABS: HEMATOCRIT 37.3 % (39.0-50.0); HEMOGLOBIN 12.2 g/dl (14.0-18.0); IMMATURE GRANULOCYTES 0.2 % (0.0-5.0); MEAN CORPUSCULAR HGB 29.8 pG CALC (26.0-32.0); MEAN CORPUSCULAR HGB CONC 32.7 g/L CALC (32.0-36.0); NEUT# 3.83 thou/uL (1.82-7.42); RED BLOOD COUNT 4.1 mill/uL (4.70-6.10); RED CELL DISTRI WIDTH 12.2 % (11.5-15.5)
--- NOTE | 2018-08-20 06:21 | NUR ---
CRITICAL LAB PT- 87.0 INR-8.5, CALLED NO NEW ORDERS AT THIS TIME.
[2018-08-20 06:34] LABS: ALBUMIN 3.4 g/dL (3.2-5.0); ALKALINE PHOSPHATASE 115 u/l (38-126); ANION GAP 10 (6-22 (CALC)); BILIRUBIN, TOTAL 0.3 mg/dL (0.0-1.4); BUN 13 mg/dL (8-23); BUN/CREATININE RATIO 17 (12-20 (CALC)); CARBON DIOXIDE 26 mmol/l (22-30); CHLORIDE 99 mmol/l (95-108); CREATININE 0.8 mg/dL (0.7-1.3); GFR > 60 ML/MIN (>=60 (CALC)); GFR FOR AFR.AMER. > 60 ML/MIN (>=60 (CALC)); LIPASE 55 u/l (23-300); MAGNESIUM 1.9 mg/dL (1.6-2.3); POTASSIUM 4.6 mmol/l (3.5-5.1); SGOT/AST 23 u/l (19-48); SODIUM 130 mmol/l (137-146)
[2018-08-20 07:00] LABS: AMYLASE 52 u/l (30-110)
--- NOTE | 2018-08-20 08:05 | NUR ---
ASSESSMENT DONE. PT IS A&O X3. PT STATED HE IS FINE. PT DENIES PAIN . PT RESTING ON HIS LEFT SIDE. TELE IN PLACE. SAFETY PRECAUTIONS REINFORCED AND CALL LIGHT IN REACH. BED ALARM IN PLACE FOR SAFETY.
[2018-08-20 08:59] VITALS: BP 128/64
[2018-08-20 11:30] VITALS: BP 142/70
--- NOTE | 2018-08-20 12:04 | NUR ---
PT IS SITTING IN THE SIDE OF THE BED EATING HIS LUNCH. DAUGHTER IN ROOM. DR. DOUGLAS IN ROOM TO DISCUSS POC WITH PT AND DAUGHTER. CALL LIGHT IN REACH.
--- NOTE | 2018-08-20 12:34 | NUR ---
PT SET OFF THE BED ALARM TO GO TO THE BATHROOM. ASSOCIATE SPA DIRECTOR IN ROOM
--- NOTE | 2018-08-20 15:10 | NUR ---
PT IS RESTING IN BED WITH NO S/S OF DISTRESSS NOTED. TELE IN PLACE. PT DENIES PAIN AT THIS TIME. CALL LIGHT IN REACH.
[2018-08-20 15:48] VITALS: BP 121/69
[2018-08-20 19:20] VITALS: BP 98/57
--- NOTE | 2018-08-20 19:50 | NUR ---
PT. SITTING UP IN BED WITH NO DISTRESS NOTED;DENIES PAIN; ASSESSMENT COMPLETED; IV SITE PATENT AND SCHED ROCEPHIN HUNG AND MEDICATED WITH OTHER ORDERED MEDICATIONS; PT. ENCOURAGED TO REPOSITION IN BED AND PT. IS ABLE TO TURN HIMSELF; PT. DOES HAVE MINIMAL ROM TO RIGHT ARM R/T PREVIOUS INJURY; BED ALARM IS SET FOR SAFETY PRECAUTIONS AND RE-EDCUATED ON HOW TO USE CALL LIGHT AND PT. IS INSTRUCTED TO CALL FOR ALL OOB NEEDS; VERBALIZES UNDERSTANDING; UPDATED ON POC; CALL LIGHT IS IN REACH; WILL CONTINUE TO MONITOR.
[2018-08-21] VITALS (7 sets, daily range): BP systolic 103–154; BP diastolic 59–78
--- NOTE | 2018-08-21 00:15 | NUR ---
PT. RESTING IN BED WITH EYES CLOSED; RESP. EVEN AND UNLABORED; CALL LIGHT IS IN REACH. WILL CONTINUE TO MONITOR.
--- NOTE | 2018-08-21 00:30 | NUR ---
PER PIPE THREADER PT. NOW HAS A FIRST DEGREE BLOCK; EKG ORDER PLACED AND NOTIFIED RT.PT. SLEEPING.
--- NOTE | 2018-08-21 03:20 | NUR ---
PT. RESTING IN BED WITH EYES CLOSED; RESP EVEN AND UNLABORED; NO DISTRESS NOTED; CALL LIGHT IS IN REACH. WILL CONTINUE TO MONITOR.
[2018-08-21 05:21] LABS: ALBUMIN 3.1 g/dL (3.2-5.0); ALKALINE PHOSPHATASE 92 u/l (38-126); ANION GAP 11 (6-22 (CALC)); BILIRUBIN, TOTAL 0.2 mg/dL (0.0-1.4); BUN 22 mg/dL (8-23); BUN/CREATININE RATIO 25 (12-20 (CALC)); CARBON DIOXIDE 29 mmol/l (22-30); CHLORIDE 96 mmol/l (95-108); CREATININE 0.9 mg/dL (0.7-1.3); GFR > 60 ML/MIN (>=60 (CALC)); GFR FOR AFR.AMER. > 60 ML/MIN (>=60 (CALC)); HEMATOCRIT 34.2 % (39.0-50.0); HEMOGLOBIN 11.2 g/dl (14.0-18.0); IMMATURE GRANULOCYTES 0.6 % (0.0-5.0); MEAN CELL VOLUME 90.5 fL CALC (80.0-100.0); MEAN CORPUSCULAR HGB 29.6 pG CALC (26.0-32.0); MEAN CORPUSCULAR HGB CONC 32.7 g/L CALC (32.0-36.0); NEUT# 4.3 thou/uL (1.82-7.42); POTASSIUM 4.4 mmol/l (3.5-5.1); RED BLOOD COUNT 3.78 mill/uL (4.70-6.10); RED CELL DISTRI WIDTH 12.6 % (11.5-15.5); SGOT/AST 20 u/l (19-48); SODIUM 132 mmol/l (137-146); TOTAL PROTEIN 5.7 g/dL (6.3-8.2)
--- NOTE | 2018-08-21 05:22 | NUR ---
PT. RESTING IN BED WITH EYES CLOSED; AWAKENED FOR AM MEDICATION; NO DISTRESS NOTED; DENIES NEEDS; CALL LIGHT IS IN REACH; BED ALARM IN PLACE.
--- NOTE | 2018-08-21 07:30 | NUR ---
PT RESTING IN BED WITH EYES CLOSED. PT AROUSES TO VERBAL STIMULI. PT IS ALERT AND ORIENTED TO SELF ONLY. BED ALARM IN PLACE. IV PATENT. CALL LIGHT IN REACH. WILL CONTINUE TO MONITOR.
--- NOTE | 2018-08-21 11:36 | NUR ---
PT SITTING UP IN BED VISITNG WITH DAUGHTER. RESP ARE EVEN AND UNLABORED. NO DISTRESS NOTED. CALL LIGHT IN REACH. WILL CONTINUE TO MNITOR.
--- NOTE | 2018-08-21 12:45 | NUR ---
DR DOUGLAS AT BEDSIDE TO DISCUSS PLAN OF CARE
--- NOTE | 2018-08-21 14:00 | NUR ---
PT TO RADIOLOGY VIA WHEELCHAIR ACCOMPANIED BY VOLUNTEER.
--- NOTE | 2018-08-21 14:52 | NUR ---
PT RETURNED FROM RADIOLOGY IN STABLE CONDITION.
--- NOTE | 2018-08-21 16:13 | NUR ---
PT RESTING IN BED WATCHING TV. RESP ARE EVEN AND UNLABORED. NO DISTRESS NOTED. CALL LIGHT IN REACH. WILL CONTINUE TO MONITOR.
--- NOTE | 2018-08-21 16:40 | NUR ---
PHONED PT DAUGHTER REFERENCE PT CODE STATUS. DAUGHTER STATES THAT PT IS A DNR. DAUGHTER TO BRING IN DNR.
--- NOTE | 2018-08-21 17:10 | NUR ---
DAUGHTER BROUGHT IN DNR. PROVIDED TO DR DOUGLAS. CHART UPDATED.
--- NOTE | 2018-08-21 20:50 | NUR ---
PT. SLEEPING AND AWAKENED FOR ASSESSMENT; NO DISTRESS NOTED; DENIES NEEDS/PAIN; SCHED MEDS GIVEN; NEURO CHECK PERFORMED; PT. ABLE TO REPOSITION SELF. INSTRUCTED TO CALL FOR ALL OOB NEEDS; VERBALIZES UNDERSTANDING; BED ALRM ON FOR SAFETY PRECAUTIONS; SNACK PROVIDED AND PT. PULLED UP IN BED; CALL LIGHT IS IN REACH; WILL CONTINUE TO MONITOR.
--- NOTE | 2018-08-21 23:56 | NUR ---
NEURO CHECK PERFORMED AND REMAINS UNCHANGED; DENIES NEEDS; VSS; ENCOURAGED TO CALL FOR ANY NEEDS. CALL LIGHT IS IN REACH.
--- NOTE | 2018-08-22 01:50 | NUR ---
RECORDING STUDIO SET UP WORKER CALLED AND REPORTED HR DIPPED DOWN TO 39 AND IS BACK UP INTO THE 50'S; PT. IS SLEEPING AND IS ASYMPTOMATIC; B/P WNL AND RADIAL HR NOW 55; WILL CONTINUE TO MONITOR.
[2018-08-22 01:55] VITALS: BP 129/68
--- NOTE | 2018-08-22 03:36 | NUR ---
PT. RESTING IN BED WITH EYES CLOSED; RESP. EVEN AND UNLABORED;NO DISTRESS NOTED; CALL LIGHT IS IN REACH.
[2018-08-22 04:28] VITALS: BP 150/76
[2018-08-22 05:16] LABS: HEMATOCRIT 36.8 % (39.0-50.0); HEMOGLOBIN 11.6 g/dl (14.0-18.0); IMMATURE GRANULOCYTES 1.2 % (0.0-5.0); MEAN CELL VOLUME 92.5 fL CALC (80.0-100.0); MEAN CORPUSCULAR HGB 29.1 pG CALC (26.0-32.0); MEAN CORPUSCULAR HGB CONC 31.5 g/L CALC (32.0-36.0); NEUT# 3.18 thou/uL (1.82-7.42); RED BLOOD COUNT 3.98 mill/uL (4.70-6.10); RED CELL DISTRI WIDTH 12.4 % (11.5-15.5)
[2018-08-22 05:46] LABS: ALBUMIN 3.2 g/dL (3.2-5.0); ALKALINE PHOSPHATASE 90 u/l (38-126); ANION GAP 9 (6-22 (CALC)); BILIRUBIN, TOTAL 0.2 mg/dL (0.0-1.4); BUN 22 mg/dL (8-23); BUN/CREATININE RATIO 25 (12-20 (CALC)); CARBON DIOXIDE 31 mmol/l (22-30); CHLORIDE 98 mmol/l (95-108); CREATININE 0.9 mg/dL (0.7-1.3); GFR > 60 ML/MIN (>=60 (CALC)); GFR FOR AFR.AMER. > 60 ML/MIN (>=60 (CALC)); MAGNESIUM 2.2 mg/dL (1.6-2.3); POTASSIUM 4.6 mmol/l (3.5-5.1); SGOT/AST 26 u/l (19-48); SODIUM 133 mmol/l (137-146); TOTAL PROTEIN 5.7 g/dL (6.3-8.2)
--- NOTE | 2018-08-22 06:20 | NUR ---
NOTIFIED DR. MILES OF PT'S HR DIPPING DOWN INTO THE 30'S THROUGHOUT THE NIGHT, BUT NOT SUSTAINING WELL HR BEING LOWER STAYING IN THE HIGH 40'S AND LOW 50'S; ORDERS RECEIVED TO D/C TELEMETRY ; WILL CARRY OUT ORDER.
--- NOTE | 2018-08-22 07:15 | NUR ---
PT REPORT RECIEVED FROM SINAN NIXON. PT SLEEPING. NO S/S OF DISTRESS. CALL LIGHT IN REACH. WILL CONTINUE TO MONITOR.
[2018-08-22 08:00] VITALS: BP 149/82
--- NOTE | 2018-08-22 08:00 | NUR ---
PT A/O X3. SPEECH IS CLEAR. RESP EVEN AND UNLABORED. LUNG SOUNDS CLEAR. PRODUCTIVE COUGH NOTED; FROTHY DE OLIVEIRA. O2 @2L ON PT. BOWEL SOUNDS ACTIVE X4. STRONG RADIAL AND PEDAL PULSES. #22 RFA SL. FLUSHED AND PATENT. SITE APPEARS HEALTHY. SKIN INTACT. PT DENIES ANY PAIN OR NEEDS. POC DISCUSSED. SAFETY PRECAUTIONS IN PLACE. CALL LIGHT IN REACH. WILL CONTINUE TO MONITOR.
--- NOTE | 2018-08-22 11:29 | NUR ---
PT RESTING. NO C/O PAIN OR NEEDS. BED ALARM ON. CALL LIGHT IN REACH. WILL CONTINUE TO MONITOR.
--- NOTE | 2018-08-22 14:22 | NUR ---
Spoke with attending nurse regarding patients HR prior to treatment, nurse reports stable HR and cleared patient for treatment. Pt. agrees to participate in functional activity. Resting HR in 60's and O2 sats at 97%. AROM hip and knee flexion to both LE's x 10 repetitions and ankle pumps x 10 repetitions. We also worked on supine to side ly to sit to stand transfers with verbal cues for hand placement. Pt. took 20 steps with hand held assist to recliner, CGA x1. Stand to sit onto recliner again with v.c.'s for hand placement. LE's elevated, call brice reviewed and left within reach. Attending nurse informed of same. O2 sats maintained above 95% on room air and HR 60-65. Pt. left resting comfortably without questions/concerns. AM-PAC 6 clicks raw score of 11 indicating LTAC placement.
[2018-08-22 15:41] VITALS: BP 119/63
--- NOTE | 2018-08-22 16:23 | NUR ---
PT LYING IN BED WATCHING TELEVISION. NO C/O PAIN OR NEEDS. BED ALARM ON. CALL LIGHT IN REACH. WILL CONTINUE TO MONITOR.
[2018-08-22 19:10] VITALS: BP 92/49
[2018-08-22 19:45] VITALS: BP 98/54
--- NOTE | 2018-08-22 20:54 | NUR ---
PT MEDICATED ORDERS PROVIDE, IV ANTIBIOTIC THERAPY ADMINSTERED AT THIS TIME. ASSESSMENT COMPLETED. PT WAS SLEEPING, BUT AWOKE TO MY VOICE WHEN I ENTERED THE ROOM. LUNG SOUNDS ARE CLEAR, ABD DIST/FIRM NON-TENDER. PT LOC TO SELF/ AND LOCATION, BUT HESITATES PRIOR TO RESPONSES. DENIES ANY OTHER NEEDS AT THIS TIME. CALL LIGHT IS AT BEDSIDE AND PT ENCOURAGED TO CALL IF ANY NEEDS ARISE.
--- NOTE | 2018-08-22 21:25 | NUR ---
IV ANTIBIOTIC THERAPY COMPLETED AT THIS TIME. NO S/O DISTRESS. PT IS SLEEPING. CALL LIGHT AT BEDSIDE.
[2018-08-23 00:03] VITALS: BP 131/77
--- NOTE | 2018-08-23 03:32 | NUR ---
PT SLEEPING AT THIS TIME. NO S/O DISTRESS NOTED. CALL LIGHT AT SIDE, LIGHTS AND TV ARE OFF, BED ALARM ON.
[2018-08-23 04:10] VITALS: BP 129/68
[2018-08-23 05:12] LABS: HEMATOCRIT 36.4 % (39.0-50.0); HEMOGLOBIN 11.8 g/dl (14.0-18.0); IMMATURE GRANULOCYTES 0.8 % (0.0-5.0); MEAN CELL VOLUME 91.7 fL CALC (80.0-100.0); MEAN CORPUSCULAR HGB 29.7 pG CALC (26.0-32.0); MEAN CORPUSCULAR HGB CONC 32.4 g/L CALC (32.0-36.0); NEUT# 3.37 thou/uL (1.82-7.42); RED BLOOD COUNT 3.97 mill/uL (4.70-6.10); RED CELL DISTRI WIDTH 12.2 % (11.5-15.5)
[2018-08-23 05:38] LABS: ALKALINE PHOSPHATASE 89 u/l (38-126); ANION GAP 8 (6-22 (CALC)); BILIRUBIN, TOTAL 0.2 mg/dL (0.0-1.4); BUN 18 mg/dL (8-23); BUN/CREATININE RATIO 25 (12-20 (CALC)); CARBON DIOXIDE 29 mmol/l (22-30); CHLORIDE 98 mmol/l (95-108); CREATININE 0.7 mg/dL (0.7-1.3); GFR > 60 ML/MIN (>=60 (CALC)); GFR FOR AFR.AMER. > 60 ML/MIN (>=60 (CALC)); MAGNESIUM 2.1 mg/dL (1.6-2.3); POTASSIUM 4.4 mmol/l (3.5-5.1); SGOT/AST 21 u/l (19-48); SODIUM 131 mmol/l (137-146); TOTAL PROTEIN 5.3 g/dL (6.3-8.2)
--- NOTE | 2018-08-23 06:12 | NUR ---
PT MEDICATED ORDERS PROVIDE, NO S/O DISTRESS NOTED AT THIS TIME. PT APPEARS SLIGHTLY DISORIENTED, BUT CALM THIS AM. DENIES ANY NEEDS, LOC TO SELF AND REORIENTED QUICKLY TO CIRCUMSTANCE AND LOCATION.
--- NOTE | 2018-08-23 06:18 | NUR ---
VENTILATOR SETTING AND ASSESSMENT DONE ON THIS PATIENT BY MISTAKE. WRONG PATIENT. WRONG DOCUMENTAION
[2018-08-23 09:00] VITALS: BP 122/57
--- NOTE | 2018-08-23 09:00 | NUR ---
PT RESTING IN BED, NO SIGNS OF DISTRESS NOTED, RESP EVEN AND UNLABORED. DISCUSSED POC, VSS. PT MEDICATED PER MAR. ASSESSMENT COMPLETED, PT HAS A FLAT AFFECT. NEURO CHECK COMPLETED. ENCOURAGED PT TO CALL FOR ASSISTANCE, BED ALARM FOR SAFETY.
[2018-08-23 11:25] VITALS: BP 143/78
--- NOTE | 2018-08-23 11:25 | NUR ---
PT ASSISTED TO RECLINER AT BEDSIDE, C/O PAIN TO BUTTOCK FROM LYING IN BED. DAUGHTER AT BEDSIDE. CALL LIGHT IN REACH,CONTINUE TO MONITOR.
--- NOTE | 2018-08-23 12:40 | NUR ---
AT BEDSIDE, TO DISCUSS POC,DAUGHTER AT BEDSIDE. CALL LIGHT IN REACH,CONTINUE TO MONITOR.
--- NOTE | 2018-08-23 15:37 | NUR ---
PT ASSISTED BACK TO BED FROM BATHROOM, PT ONLY PASSED GAS NO BM, MEDICATED WITH LACTULOSE. CALL LIGHT IN REACH,CONTINUE TO MONITOR.
[2018-08-23 16:55] VITALS: BP 150/81
[2018-08-23 19:07] VITALS: BP 106/58
--- NOTE | 2018-08-23 20:00 | NUR ---
PATIENT RESTING IN BED AT THIS TIME-AWAKE ALERT AND ORIENTEDX2 TO PERSON AND PLACE. PATIENT WITH NO COMPLAINTS AT THIS TIME. PATIENT WITH VISUAL IMPAIRMENT TO BOTH EYES. IV SITE TO RIGHT FOREARM INTACT WITH AZITHROMYCIN INFUSING AT THIS TIME. SITE IS HEALTHY AT THIS TIME. SAFETY PRECAUTIONS REINFORCED.BED ALARM IN PLACE. CALL LIGHT IN REACH. WILL CONT TO MONITOR.
--- NOTE | 2018-08-24 | NUR ---
PATIENT RESTING IN BED-VOIDED 250CC OF URINE IN URINAL. NO COMPLAINTS AT THIS TIME. BED ALARM IN PLACE. SAFETY PRECAUTIONS REINFORCED. CALL LIGHT IN REACH. WILL CONT TO MONITOR.
--- NOTE | 2018-08-24 02:30 | NUR ---
PATIENT ADMITTED FROM ER VIA STRETCHER WITH ER STAFF IN ATTENDANCE. PATIENT TRANSFERRED FROM STRETCHER TO BED. PATIENT IN ATTENDANCE. PATIENT IS [place] ALERT WITH EXPRESSIVE APHASIA. IS ABLE TO HELP WITH ADMISSION PROCESS. PATIENT WITH EXTENSIVE HISTORY-SEE PMH IN ADMISSION PROCESS. PATIENT WITH SALINE LOCK TO RIGHT AC-=SITE IS HEALTHY AT THIS TIME WITH GOOD BLOOD RETURN. TEMP IS DOWN TO 99.5 AT THIS TIME. PATIENT WITH COURSE BS THROUGHOUT BOTH LUNG FEILDS. NON-PRODUCTIVE COUGH AT THIS TIME. ABD IS SOFT WITH BS+. LAST BM WAS 08/23. DENIES ANY DIFFICULTY WITH URINATION.ORIENTED PATIENT AND TO ROOM AND SURROUNDINGS. INSTRUCTED ON USE OF NURSE CALL LIGHT SYSTEM. SAFETY PRECAUTIONS REINFORCED. CALL LIGHT IN REACH. WILL CONT TO MONITOR.
--- NOTE | 2018-08-24 04:00 | NUR ---
PATIENT APPEARS SLEEPING AT THIS TIME. RESP ARE EVEN AND UNLABORED. CALL LIGHT IN REACH. WILL CONT TO MONITOR.
[2018-08-24 04:20] VITALS: BP 112/61
--- NOTE | 2018-08-24 05:21 | NUR ---
APPEARS SLEEPING AT THIS TIME WITH O2 VIA NASAL CANNULA IN PLACE. HOB ELEVATED. AT BEDSIDE IN RECLINER PROVIDED RESTING AT THIS TIME. AFEBRILE AT THIS TIME. CALL LIGHT IN REACH. WILL CONT TO MONITOR.
[2018-08-24 05:31] LABS: HEMATOCRIT 34.6 % (39.0-50.0); HEMOGLOBIN 11.3 g/dl (14.0-18.0); IMMATURE GRANULOCYTES 0.8 % (0.0-5.0); MEAN CELL VOLUME 90.3 fL CALC (80.0-100.0); MEAN CORPUSCULAR HGB 29.5 pG CALC (26.0-32.0); MEAN CORPUSCULAR HGB CONC 32.7 g/L CALC (32.0-36.0); NEUT# 2.64 thou/uL (1.82-7.42); RED BLOOD COUNT 3.83 mill/uL (4.70-6.10); RED CELL DISTRI WIDTH 12.4 % (11.5-15.5)
[2018-08-24 05:48] LABS: ANION GAP 9 (6-22 (CALC)); BUN 14 mg/dL (8-23); BUN/CREATININE RATIO 20 (12-20 (CALC)); CARBON DIOXIDE 30 mmol/l (22-30); CHLORIDE 98 mmol/l (95-108); CREATININE 0.7 mg/dL (0.7-1.3); GFR > 60 ML/MIN (>=60 (CALC)); GFR FOR AFR.AMER. > 60 ML/MIN (>=60 (CALC)); SODIUM 133 mmol/l (137-146)
--- NOTE | 2018-08-24 06:09 | NUR ---
CALL DR. SIFUENTES WITH TROP RESULTS FROM THIS AM-0.136. NO NEW ORDERS RECIEVED. STATES TO STAY ON MED-SURG WILL EVAL TODAY AND GET NEXT TROP. WILL CONT TO MONITOR.
[2018-08-24 07:48] VITALS: BP 177/95
--- NOTE | 2018-08-24 08:04 | NUR ---
PT SITTING ON SIDE OF BED FOR BREAKFAST, NO SIGNS OF DISTRESS NOTED, RESP EVEN AND UNLABORED. PT ALERT AND ORIENTED X3, FLAT AFFECT. DISCUSSED POC, PT BP ELEVATED. ASSESSMENT COMPLETED, CALL LIGHT IN REACH,CONTINUE TO MONITOR.
[2018-08-24 10:28] VITALS: BP 114/67
--- NOTE | 2018-08-24 10:28 | NUR ---
VITALS OBTAINED AFTER AM MEDS GIVEN, VSS, PT VOICES NO NEEDS OR COMPLAINTS AT THIS TIME, CALL LIGHT IN REACH,CONTINUE TO MONITOR.
--- NOTE | 2018-08-24 12:00 | NUR ---
PT SITTING ON SIDE OF BED EATING LUNCH, NO SIGNS OF DISTRESS NOTED, RESP EVEN AND UNLABORED. CALL LIGHT IN REACH,CONTINUE TO MONITOR.
[2018-08-24] MEDS ORDERED: ZITHROMAX250 MG PO (12:47)
--- NOTE | 2018-08-24 15:25 | NUR ---
PT DAUGHTER RETURNED CALL REGARDING HER FATHER. DISCUSSED PLANS FOR DISCHARGE, DAUGHTER TO COME TO TAKE FATHER HOME. PT RESTING IN BED, NO SIGNS OF DISTRESS NOTED, IV SITE REMOVED, CATHETER INTACT. CALL LIGHT IN REACH,CONTINUE TO MONITOR.
--- NOTE | 2018-08-24 15:55 | NUR ---
DAUGHTER AT BEDSIDE, DISCUSSED DISCHARGE INFORMATION, PT AND DAUGHTER VERBALIZED UNDERSTANDING. MOTORIZED S[employer]AD [employer]IE[employer]ENANT ASSISTING PT TO DRESS.
--- NOTE | 2018-08-24 16:01 | NUR ---
Discharge instructions given. Patient verbalizes understanding of same. Discharged in stable condition via Wheelchair to Home with family. All belongings sent with pt.
== END 2018-08-24 16:00 | disposition home or self-care (01) | DRG 193 ==
LOC: ED 14:46 → ED-I 17:26 → ED 17:39 → MS2 17:40
PROVIDERS: Family Medicine; Nurse Practitioner Family; ADMIT Internal Medicine Nephrology; ATTEND Internal Medicine Nephrology
DX: J18.9 Pneumonia, unspecified organism (principal); G93.41 Metabolic encephalopathy; E87.1 Hypo-osmolality and hyponatremia; I10 Essential (primary) hypertension; I25.10 Atherosclerotic heart disease of native coronary artery without angina pectoris; E78.5 Hyperlipidemia, unspecified; E03.9 Hypothyroidism, unspecified; F41.1 Generalized anxiety disorder; N40.0 Benign prostatic hyperplasia without lower urinary tract symptoms; M62.81 Muscle weakness (generalized); K59.00 Constipation, unspecified; F03.90 Unspecified dementia, unspecified severity, without behavioral disturbance, psychotic disturbance, mood disturbance, and anxiety; T45.526A Underdosing of antithrombotic drugs, initial encounter; Z91.128 Patient's intentional underdosing of medication regimen for other reason; Z95.5 Presence of coronary angioplasty implant and graft
CPT/HCPCS: G0378; Q9967

== ENCOUNTER 2018-11-04 15:55 | Observation (INO) | payer MEDICARE ==
[~2018-11-04] VITALS: Ht 162.6 cm; Wt 72.0 kg
[~2018-11-04 15:55] MED LIST changes: +MONTELUKAST SOD10 MG PO; +TIMOLOL 0.5%5 ML OU; +ZITHROMAX250 MG PO; +ZYRTEC10 MG PO
[2018-11-04] MEDS ORDERED: ASPIRIN81 MG PO (16:26)
[2018-11-04 16:27] LABS: HEMATOCRIT 36.5 % (39.0-50.0); HEMOGLOBIN 11.5 g/dl (14.0-18.0); IMMATURE GRANULOCYTES 0.5 % (0.0-5.0); MEAN CELL VOLUME 91.5 fL CALC (80.0-100.0); MEAN CORPUSCULAR HGB 28.8 pG CALC (26.0-32.0); MEAN CORPUSCULAR HGB CONC 31.5 g/L CALC (32.0-36.0); NEUT# 3.22 thou/uL (1.82-7.42); RED BLOOD COUNT 3.99 mill/uL (4.70-6.10); RED CELL DISTRI WIDTH 12.6 % (11.5-15.5)
[2018-11-04 16:37] LABS: ANION GAP 10 (6-22 (CALC)); BUN 14 mg/dL (8-23); BUN/CREATININE RATIO 14 (12-20 (CALC)); CARBON DIOXIDE 29 mmol/l (22-30); CHLORIDE 102 mmol/l (95-108); GFR > 60 ML/MIN (>=60 (CALC)); GFR FOR AFR.AMER. > 60 ML/MIN (>=60 (CALC)); POTASSIUM 4.7 mmol/l (3.5-5.1); SODIUM 136 mmol/l (137-146)
[2018-11-04 19:25] VITALS: BP 129/57
[2018-11-04 23:56] VITALS: BP 112/51
[2018-11-05 03:59] VITALS: BP 143/75
[2018-11-05 07:55] VITALS: BP 148/58
[2018-11-05 10:20] VITALS: BP 97/48
== END 2018-11-05 12:40 ==
LOC: ED 15:55 → ED-I 16:11 → ED 16:58 → MS2 16:59
PROVIDERS: Family Medicine; ADMIT Internal Medicine; ATTEND Internal Medicine
DX: R07.89 Other chest pain (principal); I25.10 Atherosclerotic heart disease of native coronary artery without angina pectoris; I10 Essential (primary) hypertension; F32.9 Major depressive disorder, single episode, unspecified; F03.91 Unspecified dementia, unspecified severity, with behavioral disturbance; G47.00 Insomnia, unspecified; E78.5 Hyperlipidemia, unspecified; E03.9 Hypothyroidism, unspecified; N40.0 Benign prostatic hyperplasia without lower urinary tract symptoms; F41.1 Generalized anxiety disorder; K21.9 Gastro-esophageal reflux disease without esophagitis; Z87.11 Personal history of peptic ulcer disease; Z95.5 Presence of coronary angioplasty implant and graft

== ENCOUNTER 2018-12-20 15:32 | Observation (INO) | payer MEDICARE ==
[~2018-12-20] VITALS: Ht 162.6 cm; Wt 80.0 kg
[2018-12-20] VITALS (7 sets, daily range): BP systolic 166–201; BP diastolic 78–97
[~2018-12-20 15:32] MED LIST changes: +ASPIRIN81 MG PO
[2018-12-20 16:14] LABS: HEMATOCRIT 32.8 % (39.0-50.0); HEMOGLOBIN 10.6 g/dl (14.0-18.0); IMMATURE GRANULOCYTES 0.4 % (0.0-5.0); MEAN CELL VOLUME 90.1 fL CALC (80.0-100.0); MEAN CORPUSCULAR HGB 29.1 pG CALC (26.0-32.0); MEAN CORPUSCULAR HGB CONC 32.3 g/L CALC (32.0-36.0); NEUT# 3.22 thou/uL (1.82-7.42); RED BLOOD COUNT 3.64 mill/uL (4.70-6.10); RED CELL DISTRI WIDTH 12.6 % (11.5-15.5)
[2018-12-20 16:46] LABS: ALBUMIN 3.5 g/dL (3.2-5.0); ALKALINE PHOSPHATASE 68 u/l (38-126); BUN 12 mg/dL (8-23); BUN/CREATININE RATIO 14 (12-20 (CALC)); CHLORIDE 104 mmol/l (95-108); CREATININE 0.8 mg/dL (0.7-1.3); GFR > 60 ML/MIN (>=60 (CALC)); GFR FOR AFR.AMER. > 60 ML/MIN (>=60 (CALC)); SODIUM 134 mmol/l (137-146)
[2018-12-20 16:50] LABS: ANION GAP 12 (6-22 (CALC)); BILIRUBIN, TOTAL 0.9 mg/dL (0.0-1.4); CARBON DIOXIDE 23 mmol/l (22-30); SGOT/AST 40 u/l (19-48); TOTAL PROTEIN 6.6 g/dL (6.3-8.2)
[2018-12-20 16:52] LABS: POTASSIUM 4.7 mmol/l (3.5-5.1)
[2018-12-20 16:58] LABS: MYOGLOBIN 28 ng/mL (0 - 121)
[2018-12-20 18:17] LABS: URINE BILIRUBIN - DIPSTICK NEGATIVE (NEGATIVE); URINE BLOOD DIPSTICK NEGATIVE (NEGATIVE); URINE COLOR YELLOW; URINE GLUCOSE - DIPSTICK NEGATIVE (NEGATIVE); URINE KETONE NEGATIVE (NEGATIVE); URINE LEUK ESTERASE NEGATIVE (NEGATIVE); URINE NITRITE - DIPSTICK NEGATIVE (Negative); URINE PROTEIN - DIPSTICK NEGATIVE (NEG-TRACE); URINE UROBILINOGEN - DIPSTICK 0.2 E.U./dL (0.2)
[2018-12-21] VITALS (18 sets, daily range): BP systolic 93–187; BP diastolic 53–111
[2018-12-21 05:51] LABS: IMMATURE GRANULOCYTES 0.4 % (0.0-5.0); MEAN CELL VOLUME 90.9 fL CALC (80.0-100.0); MEAN CORPUSCULAR HGB 28.7 pG CALC (26.0-32.0); MEAN CORPUSCULAR HGB CONC 31.6 g/L CALC (32.0-36.0); NEUT# 2.87 thou/uL (1.82-7.42); RED BLOOD COUNT 4.49 mill/uL (4.70-6.10); RED CELL DISTRI WIDTH 12.5 % (11.5-15.5)
[2018-12-21 06:00] LABS: HEMATOCRIT 40.8 % (39.0-50.0); HEMOGLOBIN 12.9 g/dl (14.0-18.0)
[2018-12-21 06:04] LABS: ANION GAP 12 (6-22 (CALC)); BUN 10 mg/dL (8-23); BUN/CREATININE RATIO 14 (12-20 (CALC)); CHLORIDE 99 mmol/l (95-108); CREATININE 0.8 mg/dL (0.7-1.3); GFR > 60 ML/MIN (>=60 (CALC)); GFR FOR AFR.AMER. > 60 ML/MIN (>=60 (CALC)); MAGNESIUM 2.5 mg/dL (1.6-2.3); POTASSIUM 4.3 mmol/l (3.5-5.1); SODIUM 137 mmol/l (137-146)
[2018-12-21 06:10] LABS: CARBON DIOXIDE 30 mmol/l (22-30)
[2018-12-22] VITALS (14 sets, daily range): BP systolic 100–180; BP diastolic 54–89
[2018-12-23] VITALS (7 sets, daily range): BP systolic 87–189; BP diastolic 45–82
== END 2018-12-23 13:00 ==
LOC: ED 15:32 → ED-I 18:32 → ED 19:05 → MS2 19:06 → ICU 19:06
PROVIDERS: Emergency Medicine; ADMIT Internal Medicine; ATTEND Internal Medicine
DX: I49.5 Sick sinus syndrome (principal); D64.9 Anemia, unspecified; I10 Essential (primary) hypertension; F03.90 Unspecified dementia, unspecified severity, without behavioral disturbance, psychotic disturbance, mood disturbance, and anxiety; I25.10 Atherosclerotic heart disease of native coronary artery without angina pectoris; E78.5 Hyperlipidemia, unspecified; E03.9 Hypothyroidism, unspecified; F41.8 Other specified anxiety disorders; E87.1 Hypo-osmolality and hyponatremia; H40.9 Unspecified glaucoma; N40.0 Benign prostatic hyperplasia without lower urinary tract symptoms; Z66 Do not resuscitate; Z95.5 Presence of coronary angioplasty implant and graft
CPT/HCPCS: J1650; J3475

== ENCOUNTER 2019-01-02 14:00 | Inpatient (IN) | payer MEDICARE ==
[~2019-01-02] VITALS: Ht 162.6 cm; Wt 68.7 kg
[2019-01-02 14:49] LABS: HEMATOCRIT 37.8 % (39.0-50.0); HEMOGLOBIN 12.4 g/dl (14.0-18.0); IMMATURE GRANULOCYTES 0.6 % (0.0-5.0); MEAN CELL VOLUME 86.1 fL CALC (80.0-100.0); MEAN CORPUSCULAR HGB 28.2 pG CALC (26.0-32.0); MEAN CORPUSCULAR HGB CONC 32.8 g/L CALC (32.0-36.0); NEUT# 3.39 thou/uL (1.82-7.42); RED BLOOD COUNT 4.39 mill/uL (4.70-6.10); RED CELL DISTRI WIDTH 12.2 % (11.5-15.5)
[2019-01-02 15:01] LABS: ALBUMIN 4.2 g/dL (3.2-5.0); BILIRUBIN, TOTAL 0.6 mg/dL (0.0-1.4); BUN 7 mg/dL (8-23); BUN/CREATININE RATIO 9 (12-20 (CALC)); CARBON DIOXIDE 29 mmol/l (22-30); CHLORIDE 88 mmol/l (95-108); CREATININE 0.8 mg/dL (0.7-1.3); GFR > 60 ML/MIN (>=60 (CALC)); GFR FOR AFR.AMER. > 60 ML/MIN (>=60 (CALC)); MAGNESIUM 1.9 mg/dL (1.6-2.3); POTASSIUM 4.5 mmol/l (3.5-5.1); SGOT/AST 28 u/l (19-48); TOTAL PROTEIN 7.1 g/dL (6.3-8.2)
[2019-01-02 15:08] LABS: ALKALINE PHOSPHATASE 111 u/l (38-126); ANION GAP 16 (6-22 (CALC)); SODIUM 128 mmol/l (137-146)
[2019-01-02 15:24] LABS: URINE BILIRUBIN - DIPSTICK NEGATIVE (NEGATIVE); URINE BLOOD DIPSTICK TRACE-INTACT (NEGATIVE); URINE COLOR YELLOW; URINE GLUCOSE - DIPSTICK NEGATIVE (NEGATIVE); URINE KETONE TRACE mg/dL (NEGATIVE); URINE LEUK ESTERASE NEGATIVE (NEGATIVE); URINE NITRITE - DIPSTICK NEGATIVE (Negative); URINE PH 5.5 (4.5-8.0); URINE PROTEIN - DIPSTICK NEGATIVE (NEG-TRACE); URINE UROBILINOGEN - DIPSTICK 0.2 E.U./dL (0.2)
[2019-01-02 18:00] VITALS: BP 160/63
[2019-01-02] MEDS ORDERED: OLANZAPINE5 MG PO (18:32)
[2019-01-02 20:10] VITALS: BP 138/64
[2019-01-03 00:18] VITALS: BP 96/61
[2019-01-03 04:28] LABS: ANION GAP 10 (6-22 (CALC)); BUN 7 mg/dL (8-23); BUN/CREATININE RATIO 10 (12-20 (CALC)); CARBON DIOXIDE 27 mmol/l (22-30); CHLORIDE 95 mmol/l (95-108); CREATININE 0.7 mg/dL (0.7-1.3); GFR > 60 ML/MIN (>=60 (CALC)); GFR FOR AFR.AMER. > 60 ML/MIN (>=60 (CALC)); POTASSIUM 3.9 mmol/l (3.5-5.1); SODIUM 128 mmol/l (137-146)
[2019-01-03 05:16] VITALS: BP 134/78
[2019-01-03 07:49] VITALS: BP 133/71
[2019-01-03 11:05] VITALS: BP 125/58
[2019-01-03 14:55] VITALS: BP 137/71
[2019-01-03 15:22] LABS: ANION GAP 13 (6-22 (CALC)); BUN 8 mg/dL (8-23); BUN/CREATININE RATIO 11 (12-20 (CALC)); CARBON DIOXIDE 23 mmol/l (22-30); CHLORIDE 95 mmol/l (95-108); CREATININE 0.7 mg/dL (0.7-1.3); GFR > 60 ML/MIN (>=60 (CALC)); GFR FOR AFR.AMER. > 60 ML/MIN (>=60 (CALC)); POTASSIUM 4.4 mmol/l (3.5-5.1); SODIUM 127 mmol/l (137-146)
[2019-01-03 19:00] VITALS: BP 94/49
[2019-01-04] VITALS (7 sets, daily range): BP systolic 107–171; BP diastolic 49–92
[2019-01-04 05:10] LABS: ANION GAP 9 (6-22 (CALC)); BUN 5 mg/dL (8-23); BUN/CREATININE RATIO 8 (12-20 (CALC)); CHLORIDE 98 mmol/l (95-108); CREATININE 0.7 mg/dL (0.7-1.3); GFR > 60 ML/MIN (>=60 (CALC)); GFR FOR AFR.AMER. > 60 ML/MIN (>=60 (CALC)); POTASSIUM 3.8 mmol/l (3.5-5.1); SODIUM 131 mmol/l (137-146)
[2019-01-04 05:14] LABS: CARBON DIOXIDE 28 mmol/l (22-30)
[2019-01-05] VITALS (7 sets, daily range): BP systolic 118–176; BP diastolic 68–86
[2019-01-05 05:29] LABS: ALKALINE PHOSPHATASE 81 u/l (38-126); ANION GAP 10 (6-22 (CALC)); BILIRUBIN, TOTAL 0.5 mg/dL (0.0-1.4); BUN 8 mg/dL (8-23); BUN/CREATININE RATIO 13 (12-20 (CALC)); CARBON DIOXIDE 29 mmol/l (22-30); CHLORIDE 101 mmol/l (95-108); CREATININE 0.7 mg/dL (0.7-1.3); GFR > 60 ML/MIN (>=60 (CALC)); GFR FOR AFR.AMER. > 60 ML/MIN (>=60 (CALC)); POTASSIUM 3.8 mmol/l (3.5-5.1); SGOT/AST 19 u/l (19-48); SODIUM 135 mmol/l (137-146); TOTAL PROTEIN 5.8 g/dL (6.3-8.2)
[2019-01-05] MEDS ORDERED: REMERON7.5 MG PO (09:42)
[2019-01-06 01:15] VITALS: BP 133/75
[2019-01-06 04:49] VITALS: BP 151/83
[2019-01-06 07:23] VITALS: BP 164/80
[2019-01-06 12:08] VITALS: BP 158/80
[2019-01-06 15:05] VITALS: BP 131/72
[2019-01-06] MEDS ORDERED: FAMOTIDINE20 M1 PO (22:04)
[2019-01-06] MEDS ORDERED: METOPROL TAR25 MG PO (22:07)
[2019-01-06] MEDS ORDERED: ZYRTEC10 MG PO (22:08)
[2019-01-06] MEDS ORDERED: VOLTAREN1%GEL TOP (22:10)
== END 2019-01-06 16:10 | DRG 641 ==
LOC: ED 14:00 → ED-I 16:07 → ED 17:06 → MS2 17:07
PROVIDERS: Nurse Practitioner Family; ADMIT Internal Medicine; ATTEND Internal Medicine
DX: E87.1 Hypo-osmolality and hyponatremia (principal); K59.00 Constipation, unspecified; F03.90 Unspecified dementia, unspecified severity, without behavioral disturbance, psychotic disturbance, mood disturbance, and anxiety; I10 Essential (primary) hypertension; I25.10 Atherosclerotic heart disease of native coronary artery without angina pectoris; E78.5 Hyperlipidemia, unspecified; E03.9 Hypothyroidism, unspecified; N40.0 Benign prostatic hyperplasia without lower urinary tract symptoms; E87.3 Alkalosis; F32.9 Major depressive disorder, single episode, unspecified; F41.1 Generalized anxiety disorder; M19.90 Unspecified osteoarthritis, unspecified site; Z95.5 Presence of coronary angioplasty implant and graft; Z87.11 Personal history of peptic ulcer disease

== ENCOUNTER 2019-01-06 21:43 | Inpatient (IN) | payer MEDICARE ==
[~2019-01-06] VITALS: Ht 157.5 cm; Wt 67.5 kg
[~2019-01-06 21:43] MED LIST changes: +REMERON7.5 MG PO
--- NOTE | 2019-01-06 21:45 | NUR ---
BY EMS TO ROOM
[2019-01-06] MEDS ORDERED: FAMOTIDINE20 M1 PO (22:04)
[2019-01-06] MEDS ORDERED: METOPROL TAR25 MG PO (22:07)
[2019-01-06] MEDS ORDERED: ZYRTEC10 MG PO (22:08)
[2019-01-06] MEDS ORDERED: VOLTAREN1%GEL TOP (22:10)
--- NOTE | 2019-01-06 22:20 | NUR ---
ASSISTED WITH URINAL. 200 CC CLEAR YELLOW URINE.
[2019-01-06 22:34] LABS: HEMATOCRIT 37.8 % (39.0-50.0); HEMOGLOBIN 12.8 g/dl (14.0-18.0); IMMATURE GRANULOCYTES 0.3 % (0.0-5.0); MEAN CELL VOLUME 84.6 fL CALC (80.0-100.0); MEAN CORPUSCULAR HGB 28.6 pG CALC (26.0-32.0); MEAN CORPUSCULAR HGB CONC 33.9 g/L CALC (32.0-36.0); NEUT# 3.58 thou/uL (1.82-7.42); RED BLOOD COUNT 4.47 mill/uL (4.70-6.10); RED CELL DISTRI WIDTH 12.2 % (11.5-15.5)
--- NOTE | 2019-01-06 22:38 | NUR ---
NO CLINICAL CHANGE. AWAITING TEST RESULTS.
[2019-01-06 22:51] LABS: ALKALINE PHOSPHATASE 98 u/l (38-126); BILIRUBIN, TOTAL 0.7 mg/dL (0.0-1.4); BUN 10 mg/dL (8-23); BUN/CREATININE RATIO 15 (12-20 (CALC)); CARBON DIOXIDE 25 mmol/l (22-30); CHLORIDE 90 mmol/l (95-108); CREATININE 0.7 mg/dL (0.7-1.3); GFR > 60 ML/MIN (>=60 (CALC)); GFR FOR AFR.AMER. > 60 ML/MIN (>=60 (CALC)); SGOT/AST 23 u/l (19-48); TOTAL PROTEIN 6.7 g/dL (6.3-8.2)
[2019-01-06 22:55] LABS: ALBUMIN 3.9 g/dL (3.2-5.0); ANION GAP 15 (6-22 (CALC)); SODIUM 126 mmol/l (137-146)
[2019-01-07 00:40] LABS: ANION GAP 11 (6-22 (CALC)); BUN 9 mg/dL (8-23); BUN/CREATININE RATIO 13 (12-20 (CALC)); CARBON DIOXIDE 25 mmol/l (22-30); CHLORIDE 94 mmol/l (95-108); CREATININE 0.7 mg/dL (0.7-1.3); GFR > 60 ML/MIN (>=60 (CALC)); GFR FOR AFR.AMER. > 60 ML/MIN (>=60 (CALC)); POTASSIUM 3.6 mmol/l (3.5-5.1); SODIUM 126 mmol/l (137-146)
--- NOTE | 2019-01-07 01:05 | NUR ---
Admission Note Report Given to: SINAN KUMAR Transported by: Wheelchair X Stretcher Transported with: X Nurse Transporter X Patent IV O2 Message [employer]
[2019-01-07 01:15] VITALS: BP 156/61
--- NOTE | 2019-01-07 01:15 | NUR ---
PT ARRIVED TO THE FLOOR VIA STRETCHER ACCOMPANIED BY ED NURSE. AIDE AND OTHER FLOOR NURSE IN W/PT. FINANCIAL RISK MANAGER ARRIVED TO ROOM ED NURSE WAS OFF THE FLOOR AND AIDE AND FLOOR NURSE WERE REPOSITIONING PT. BREIF WAS REMOVED AND CONDOM CATHETER APPLIED. NO IFV ARE RUNNING AT THIS TIME OR BROUGHT TO FLOOR W/PT, WILL AWAIT ORDERS FROM PHYSICIAN.
--- NOTE | 2019-01-07 01:50 | NUR ---
PT ASSESSMENT COMPLETED AND IVF ADMINISTERED AT THIS TIME. PT WAS SLEEPING SOUNDLY WHEN I ENTERED THE ROOM. PT AWOKE TO MY VOICE. PT ANSWERS APPROPRIATELY, BUT IS UNABLE TO TELL ME MUCH OF HIS MEDICAL HISTORY. MOLDING MACHINE TENDER ARE EQUAL, PT ABLE TO LIFT BLE AND BUE/SORE RIGHT SHOULDER (HISTORY). NEURO'S INTACT. PT REPORTS THAT HE CAME TO THE HOSPITAL FOR PAIN IN HIS CHEST AND DIFFICULTY BREATHING.
--- NOTE | 2019-01-07 02:45 | NUR ---
PT CALLED FOR HELP USING URINAL/NURSE ASSISTED PT.
[2019-01-07 04:50] VITALS: BP 175/93
--- NOTE | 2019-01-07 04:50 | NUR ---
PT PROVIDED CYNTHIA-NUNEZ CARE. CATHETER APPEARS PATENT, BUT IS DRAINING BLOODY URINE AT THIS TIME. PT ALSO HAS SOME BLOODY DRAINAGE AT INSERTION SITE. NUNEZ CATH STRAP IS IN PLACE AND CATHETER SECURED AT THIS TIME TO RUE. WILL CONINTUE TO MONITOR, PT REMINDED NOT TO PULL ON CATHETER/VOCALIZED UNDERSTANDING. CALL LIGHT AT SIDE AND BED ALARM IS ON. PT SEEMS TO RESPOND APPROPRIATELY, BUT DOES SHOW S/O PULLING ON CATHETER/CATH FOUND DISCONNECTED FROM STRAP MULTIPLE TIMES OVER MY SHIFT. WILL NOTIFY PHYSICIAN.
--- NOTE | 2019-01-07 05:00 | NUR ---
PT MEDICATED FOR HEADACHE AT THIS TIME. CALL LIGHT AT SIDE. AIDE WAS JUST IN OBTAINING V/S AND CONDOM CATH DRAINING WELL AT THIS TIME. CALL LIGHT AT SIDE, PT C/O ROOM FEELING "CHILLY." A FEW MINUTES AGO, PT C/O ROOM FEELING "HOT." WILL CONINTINUE TO MONITOR FOR TEMP AND COMFORT.
--- NOTE | 2019-01-07 05:10 | NUR ---
PT PROVIDED PER-NUNEZ CATH CARE, CATHETER APPEARS PATENT, BUT IS DRAINING BLOODY URINE AT THIS TIME. PT ALSO HAS SOME BLOODY DRAINAGE AT INSERTION SITE. NUNEZ CATH STRAP IS IN PLACE AND CATHETER SECURED AT THIS TIME TO RUE. WILL CONTINUE TO MONITOR, PT REMINDED NOT TO PULL ON CATHETER/VOCALIZED UNDERSTANDING. CALL LIGHT AT SIDE AND BED ALARM IS ON. PT SEEMS TO RESPOND APPROPRIATELY, BUT DOES SHOW S/O PULLING ON CATHETER/CATH FOUND DISCONNECTED FROM STRAP MULTIPLE TIMES OVER MY SHIFT. WILL NOTIFY PHYSICIAN.
--- NOTE | 2019-01-07 06:51 | NUR ---
PT MEDICATED FOR ELEVATED BP AT THIS TIME. WILL CONTINUE TO MONITOR. CONDOM CATH IS DRAINING CLEAR YELLOW URINE AT THIS TIME. CALL LIGHT AT SIDE.
--- NOTE | 2019-01-07 07:00 | NUR ---
RECIEVED REPORT FROM DAY SHIFT NURSE. PT APPEARS ASLEEP AT THIS TIME. NO S/S OF DISTRESS NOTED. CALL ABDUL IN REACH. WILL CONTINUE TO MONITOR.
[2019-01-07 08:00] VITALS: BP 122/86
--- NOTE | 2019-01-07 08:48 | NUR ---
PT UP TO THE SIDE OF THE BED. PT HAD CHOKED ON SOME SAUSAGE THIS AM. AND PER O2 @ 2L WAS APPLIED. ASSEMENT COMPLETED AT THIS TIME. CONDOM CATH IN PLACE DRAINING CLEAR YELLOW URINE. IV FLUSHES WELL
--- NOTE | 2019-01-07 11:10 | NUR ---
PT UP TO BEDSIDE COMMODE WITH 2 ASSIST. CONDOM CATH FELL OFF. MED LOOSE BM. CLEANED AND GIVEN PARTIAL BATH. PT SITUATED BACK INTO BED AND NEW CONDOM CATH REAPPLIED. NO OTHER NEEDS AT THIS TIME. CALL ABDUL IN REACH. WILL CONTINUE TO MONITOR.
--- NOTE | 2019-01-07 13:30 | NUR ---
PT MEDICATED PER ORDER. CONDOM CATH FELL OFF AGAIN AT THIS TIME. REAPPLIED. NO OTHER NEEDS WILL CONTINUE TO MONITOR.
--- NOTE | 2019-01-07 15:00 | NUR ---
CONDOM CATH FELL OFF AGAIN. PT URGED TO CALL IF NEEDS ASSISTANCE BUT CONDOM CATH IS OFF AT THIS TIME. NO OTHER NEEDS. WILL CONTINUE TO MONITOR.
[2019-01-07 16:24] VITALS: BP 129/79
[2019-01-07 18:52] VITALS: BP 117/68
--- NOTE | 2019-01-07 19:30 | NUR ---
PATIENT RESTING IN BED WITH EYES CLOSED-RESPONDS WHEN SPOKEN TOO. PATIENT IS AWAKE ALERT ORIENTED TO PERSON AND PLAE. PATIENT WITH SLOW SPEECH. [place]. FLAT AFFECT. IV SITE TO LEFT WRIST INTACT WITH NS PATENT AND INFUSING AT 100CC/HR. SITE APPEARS HEALTHY AT THIS TIME. SAFETY PRECAUTIONS REINFORCED. CALL LIGHT IN REACH. WILL CONT TO MONITOR.
--- NOTE | 2019-01-07 19:46 | NUR ---
PATIENT RESTING IN BED-AWAKE ALERT AND ORIENTEDX3. PATIENT IS [place]. PATIENT SLOW SPEECH. SALINE LOCK INTACT TO LEFT WRIST WITH NS PATENT AND INFUSING AT 100CC/HR. SITE IS HEALTHY AT THIS TIME. SAFETY PRECAUTION REINFORCED. CALL LIGHT IN REACH. WILL CONT TO MONITOR.
--- NOTE | 2019-01-07 22:30 | NUR ---
PATIENT RESTING IN BED-VOIDED 550CC YELLOW URINE IN URINAL. URINE SPEC SENT TO LAB. NO COMPLAINTS AT THIS TIME. CALL LIGHT IN REACH. WILL CONT TO MONITOR.
[2019-01-07 23:15] LABS: URINE BILIRUBIN - DIPSTICK NEGATIVE (NEGATIVE); URINE BLOOD DIPSTICK NEGATIVE (NEGATIVE); URINE COLOR YELLOW; URINE GLUCOSE - DIPSTICK NEGATIVE (NEGATIVE); URINE KETONE NEGATIVE (NEGATIVE); URINE LEUK ESTERASE NEGATIVE (Negative); URINE NITRITE - DIPSTICK NEGATIVE (Negative); URINE PH 6.5 (4.5-8.0); URINE PROTEIN - DIPSTICK NEGATIVE (NEG-TRACE); URINE SPECIFIC GRAVITY <=1.005; URINE UROBILINOGEN - DIPSTICK 0.2 E.U./dL (0.2)
[2019-01-07 23:18] LABS: URINE CLARITY CLEAR
[2019-01-08 03:54] VITALS: BP 125/71
--- NOTE | 2019-01-08 04:40 | NUR ---
PATIENT RESTING IN BED. PATIENT CONT TO VOID IN URINAL WITH ASSIST. IVF NS PATENT AND INFUSING VIA LEFT WRIST SITE AT 100CC/HR. SITE REMAINS HEALTHY. PATIENT PROVIDED WITH BED BATH BY BAND AID MACHINE OPERATOR. SAFETY PRECAUTIONS REINFORCED. CALL LIGHT IN REACH. WILL CONT TO MONITOR.
[2019-01-08 05:33] LABS: ALBUMIN 3.6 g/dL (3.2-5.0); BUN 8 mg/dL (8-23); CARBON DIOXIDE 30 mmol/l (22-30); CHLORIDE 95 mmol/l (95-108); CREATININE 0.7 mg/dL (0.7-1.3); GFR > 60 ML/MIN (>=60 (CALC)); GFR FOR AFR.AMER. > 60 ML/MIN (>=60 (CALC)); POTASSIUM 3.4 mmol/l (3.5-5.1); SODIUM 132 mmol/l (137-146)
--- NOTE | 2019-01-08 07:00 | NUR ---
PT REPORT RECIEVED FROM SINAN FAIRCHILD. PT SLEEPING. NO S/S OF DISTRESS. CALL LIGHT IN REACH. WILL CONTINUE TO MONITOR.
[2019-01-08 07:48] VITALS: BP 160/85
--- NOTE | 2019-01-08 07:48 | NUR ---
PT A/O X3; PT APPEARS TO HAVE SOME CONFUSION AT TIMES. RESP SHALLOW. LUNGS DIMINISHED. BOWEL SOUNDS ACTIVE X4. STRONG RADIAL/ WEAK PEDAL PULSES. #20 LW NS @100. SITE APPEARS HEALTHY. SKIN INTACT. PT DENIES ANY PAIN OR NEEDS. POC DISCUSSED. SAFETY PRECAUTIONS IN PLACE. CALL LIGHT IN REACH. WILL CONTINUE TO MONITOR.
[2019-01-08 11:30] VITALS: BP 136/74
--- NOTE | 2019-01-08 13:05 | NUR ---
PT RESTING. NO C/O PAIN OR NEEDS. CALL LIGHT IN REACH. WILL CONTINUE TO MONITOR.
[2019-01-08 15:02] VITALS: BP 137/76
--- NOTE | 2019-01-08 17:22 | NUR ---
PT WATCHING TELEVISION. NO C/O PAIN OR NEEDS. CALL LIGHT IN REACH. WILL CONTINUE TO MONITOR.
[2019-01-08 19:35] VITALS: BP 148/77
--- NOTE | 2019-01-08 20:31 | NUR ---
PT AWAKE RESTING IN BED. PT IS ALERT TO PERSON, PLACE BUT CONFUSED ON TIME. PLEASANT AND COOPERATIVE. RESP EVEN AND UNLABORED. LUNGS REVEAL DIMINISHED BREATH SOUNDS . ABD SOFT AND NONDISTENDED WITH BOWEL SOUNDS PRESENT. NO LOWER EXT EDEMA NOTED. PEDAL PULSES PALPATED BILAT. IV SITE PATENT. PT REQUESTING TYLENOL FOR NECK PAIN. PT ASSISTED WITH REPOSITIONING. BED ALARM IS ON FOR PTS SAFETY. FREQUENT ROUNDS MADE. CALL ABDUL WITHIN REACH.
--- NOTE | 2019-01-08 21:00 | NUR ---
DUE TO PT GETTING LASIX P.O , CONDOM CATH CATH APPLIED . CYNTHIA CARE GIVEN. OFFERS NO COMPLAINTS. FREQUENT ROUNDS MADE. CALL ABDUL WITHIN REACH.
--- NOTE | 2019-01-09 00:30 | NUR ---
RESTING IN BED WITH EYES CLOSED. RESP EVEN AND UNLABORED. NO DISTRESS NOTED. IV SITE PATENT. CONDOM CATH IS PATENT DRAINING MODERATE CLEAR YELLOW URINE. BED ALARM IS ON FOR PTS SAFETY. FREQUENT ROUNDS MADE. CALL ABDUL WITHIN REACH.
--- NOTE | 2019-01-09 04:30 | NUR ---
PT RESTING IN BED WITH EYES CLOSED. ASSESSMENT UNCHANGED. RESP EVEN AND UNLABORED . IV SITE PATENT. BED ALARM IS ON. CONDOM CATH IS PATENT. FREQUENT ROUNDS MADE. CALL ABDUL WITHIN REACH.
[2019-01-09 04:55] VITALS: BP 158/76
[2019-01-09 05:44] LABS: ALBUMIN 3.1 g/dL (3.2-5.0); BUN 11 mg/dL (8-23); CARBON DIOXIDE 29 mmol/l (22-30); CHLORIDE 96 mmol/l (95-108); CREATININE 0.7 mg/dL (0.7-1.3); GFR > 60 ML/MIN (>=60 (CALC)); GFR FOR AFR.AMER. > 60 ML/MIN (>=60 (CALC)); POTASSIUM 3.4 mmol/l (3.5-5.1); SODIUM 133 mmol/l (137-146)
--- NOTE | 2019-01-09 07:00 | NUR ---
PT REPORT RECIEVED FROM SINAN MATHIAS. PT SLEEPING. NO S/S OF DISTRESS. CALL LIGHT IN REACH. WILL CONTINUE TO MONITOR.
[2019-01-09 07:30] VITALS: BP 146/71
--- NOTE | 2019-01-09 07:30 | NUR ---
PT ALERT X2. RESP EVEN AND UNLABORED. LUNGS DIMINISHED. BOWEL SOUNDS ACTIVE X4. PT C/O CONSTIPATION. WARM PRUNE JUICE GIVEN TO PT; MD ORDER PENDING. STRONG RADIAL, WEAK PEDAL PULSES. #22 LFA NS @100. SITE APPEARS HEALTHY. SKIN INTACT. CONDOM CATHETER IN PLACE; YELLOW URINE NOTED. PT DENIES ANY FURTHER NEEDS. POC DISCUSSED. SAFETY PRECAUTIONS IN PLACE. CALL LIGHT IN REACH. WILL CONTINUE TO MONITOR.
--- NOTE | 2019-01-09 08:57 | NUR ---
PHYSICAL THERAPY WORKING WITH PT.
--- NOTE | 2019-01-09 09:28 | NUR ---
The patient remains stoic but does answer questions . His BP is 130/70. He is able to get OOB and ambulate with FWW for 80 feet and mod assist of 1 for balance safety. He would do well with continued rehab in the SNF as he has bilateral shoulder problems, stiffness from immobility and needs cardiac monitoring. He reports not eating or wanting his breakfast. Am Pac score is unchanges so he would benefit from DC to SNF
[2019-01-09] MEDS ORDERED: PROZAC20 M1 PO (09:46)
[2019-01-09] MEDS ORDERED: FUROSEMIDE20 MG PO (09:46)
[2019-01-09] MEDS ORDERED: SOD CHLORIDE1 GM PO (09:46)
[2019-01-09] MEDS ORDERED: TRAMADOL HCL50 MG PO (09:50)
[2019-01-09] MEDS ORDERED: POTASSIUM CHLO10 MEQ PO (09:54)
--- NOTE | 2019-01-09 11:50 | NUR ---
PT RESTING. NO C/O PAIN OR NEEDS. CALL LIGHT IN REACH. WILL CONTINUE TO MONITOR.
[2019-01-09 13:55] VITALS: BP 135/75
--- NOTE | 2019-01-09 14:00 | NUR ---
d/c instructions discussed w/ pt. pt states understanding. iv removed; catheter intact. pt awaiting transport to [facility]
--- NOTE | 2019-01-09 14:49 | NUR ---
Discharge instructions given. Patient verbalizes understanding of same. Discharged in stable condition via [facility] with *Other. All belongings sent with pt.
== END 2019-01-09 14:43 | DRG 645 ==
LOC: ED 21:43 → ED-I 01-07 00:41 → ED 01-07 00:56 → MS2 01-07 00:57
PROVIDERS: Internal Medicine Nephrology; ADMIT Internal Medicine; ATTEND Internal Medicine
DX: E22.2 Syndrome of inappropriate secretion of antidiuretic hormone (principal); I10 Essential (primary) hypertension; I25.10 Atherosclerotic heart disease of native coronary artery without angina pectoris; E78.5 Hyperlipidemia, unspecified; E03.9 Hypothyroidism, unspecified; F32.9 Major depressive disorder, single episode, unspecified; F41.1 Generalized anxiety disorder; E86.1 Hypovolemia; N40.0 Benign prostatic hyperplasia without lower urinary tract symptoms; K21.9 Gastro-esophageal reflux disease without esophagitis; M19.90 Unspecified osteoarthritis, unspecified site; K27.9 Peptic ulcer, site unspecified, unspecified as acute or chronic, without hemorrhage or perforation; D64.9 Anemia, unspecified; G20 Parkinson's disease; F02.80 Dementia in other diseases classified elsewhere, unspecified severity, without behavioral disturbance, psychotic disturbance, mood disturbance, and anxiety; R63.0 Anorexia; Z68.26 Body mass index [BMI] 26.0-26.9, adult; Z95.5 Presence of coronary angioplasty implant and graft

== ENCOUNTER 2020-11-29 10:08 | Inpatient (IN) | payer MEDICARE ==
[~2020-11-29] VITALS: Ht 162.6 cm; Wt 72.9 kg
[~2020-11-29 10:08] MED LIST changes: +FAMOTIDINE20 M1 PO; +FUROSEMIDE20 MG PO; +METOPROL TAR25 MG PO; +POTASSIUM CHLO10 MEQ PO; +PROZAC20 M1 PO; +SOD CHLORIDE1 GM PO; +VOLTAREN1%GEL TOP
[2020-11-29 10:58] LABS: IMMATURE GRANULOCYTES 0.2 % (0.0-5.0); MEAN CELL VOLUME 92.3 fL CALC (80.0-100.0); MEAN CORPUSCULAR HGB 28.2 pG CALC (26.0-32.0); MEAN CORPUSCULAR HGB CONC 30.6 g/dL CAL (32.0-36.0); NEUT# 3.46 thou/uL (1.82-7.42); RED BLOOD COUNT 3.9 mill/uL (4.70-6.10); RED CELL DISTRI WIDTH 13.6 % (11.5-15.5)
[2020-11-29 11:19] LABS: ALBUMIN 3.9 g/dL (3.2-5.0); ALKALINE PHOSPHATASE 142 u/l (38-126); ANION GAP 11 (6-22 (CALC)); BUN 11 mg/dL (8-23); BUN/CREATININE RATIO 11 (12-20 (CALC)); CARBON DIOXIDE 29 mmol/l (22-30); CHLORIDE 99 mmol/l (95-108); GFR > 60 ML/MIN (>=60 (CALC)); GFR FOR AFR.AMER. > 60 ML/MIN (>=60 (CALC)); POTASSIUM 4.8 mmol/l (3.5-5.1); SGOT/AST 26 u/l (19-48); SODIUM 135 mmol/l (137-146); TOTAL PROTEIN 7.1 g/dL (6.3-8.2)
[2020-11-29 11:24] LABS: BILIRUBIN, TOTAL 0.2 mg/dL (0.0-1.4)
[2020-11-29] MEDS ORDERED: SIMBRINZA1 SUS OU (17:00)
[2020-11-29] MEDS ORDERED: AMLODIPINE BESYL5 MG PO (17:16)
[2020-11-29] MEDS ORDERED: FLUOXETINE10 M2 PO (17:23)
[2020-11-29] MEDS ORDERED: MIRTAZAPINE15 MG PO (17:24)
[2020-11-30 05:47] LABS: HEMATOCRIT 40.2 % (39.0-50.0); HEMOGLOBIN 11.9 g/dl (14.0-18.0); IMMATURE GRANULOCYTES 0.3 % (0.0-5.0); MEAN CELL VOLUME 94.1 fL CALC (80.0-100.0); MEAN CORPUSCULAR HGB 27.9 pG CALC (26.0-32.0); MEAN CORPUSCULAR HGB CONC 29.6 g/dL CAL (32.0-36.0); NEUT# 2.69 thou/uL (1.82-7.42); RED BLOOD COUNT 4.27 mill/uL (4.70-6.10); RED CELL DISTRI WIDTH 13.6 % (11.5-15.5)
[2020-11-30 05:55] LABS: ALKALINE PHOSPHATASE 162 u/l (38-126); BILIRUBIN, TOTAL 0.2 mg/dL (0.0-1.4); BUN 15 mg/dL (8-23); BUN/CREATININE RATIO 18 (12-20 (CALC)); C-REACTIVE PROTEIN 2.9 mg/dL (0-0.9); CHLORIDE 103 mmol/l (95-108); CREATININE 0.8 mg/dL (0.7-1.3); GFR > 60 ML/MIN (>=60 (CALC)); GFR FOR AFR.AMER. > 60 ML/MIN (>=60 (CALC)); SODIUM 135 mmol/l (137-146); TOTAL PROTEIN 7.3 g/dL (6.3-8.2)
[2020-11-30 06:02] LABS: ANION GAP 14 (6-22 (CALC)); CARBON DIOXIDE 23 mmol/l (22-30); POTASSIUM 5.3 mmol/l (3.5-5.1); SGOT/AST 53 u/l (19-48)
[2020-11-30] MEDS ORDERED: POTASSIUM CHLO10 ME4 PO (07:38)
[2020-11-30] MEDS ORDERED: FUROSEMIDE20 MG PO (07:38)
[2020-11-30] MEDS ORDERED: MEMANTINE HYDRO10 MG PO (07:38)
[2020-11-30 08:19] LABS: URINE BILIRUBIN - DIPSTICK NEGATIVE (NEGATIVE); URINE BLOOD DIPSTICK NEGATIVE (NEGATIVE); URINE COLOR YELLOW; URINE GLUCOSE - DIPSTICK NEGATIVE (NEGATIVE); URINE KETONE NEGATIVE (NEGATIVE); URINE LEUK ESTERASE NEGATIVE (NEGATIVE); URINE NITRITE - DIPSTICK NEGATIVE (Negative); URINE PROTEIN - DIPSTICK NEGATIVE (NEG-TRACE)
[2020-11-30] MEDS ORDERED: ALL DAY10 MG PO (09:58)
[2020-11-30] MEDS ORDERED: DAILY PROBIOTI250 MG PO (10:02)
[2020-11-30] MEDS ORDERED: COLACE100 MG PO (10:03)
[2020-11-30] MEDS ORDERED: SOD CHLORIDE1 G2 PO (10:07)
[2020-11-30] MEDS ORDERED: TRAMADOL HCL50 MG PO (10:12)
[2020-11-30] MEDS ORDERED: MIRALAX17 GM PO (10:13)
[2020-11-30 17:00] VITALS: BP 103/55
[2020-11-30 20:23] VITALS: BP 105/51
[2020-12-01 00:49] VITALS: BP 114/62
[2020-12-01 05:10] VITALS: BP 134/74
[2020-12-01 05:31] LABS: MEAN CELL VOLUME 94.4 fL CALC (80.0-100.0); MEAN CORPUSCULAR HGB 28.5 pG CALC (26.0-32.0); MEAN CORPUSCULAR HGB CONC 30.2 g/dL CAL (32.0-36.0); NEUT# 2.7 thou/uL (1.82-7.42); RED BLOOD COUNT 3.19 mill/uL (4.70-6.10); RED CELL DISTRI WIDTH 13.6 % (11.5-15.5)
[2020-12-01 05:40] LABS: ALKALINE PHOSPHATASE 118 u/l (38-126); BUN 23 mg/dL (8-23); BUN/CREATININE RATIO 24 (12-20 (CALC)); CHLORIDE 100 mmol/l (95-108); GFR > 60 ML/MIN (>=60 (CALC)); GFR FOR AFR.AMER. > 60 ML/MIN (>=60 (CALC)); POTASSIUM 4.9 mmol/l (3.5-5.1); SGOT/AST 52 u/l (19-48); SODIUM 132 mmol/l (137-146)
[2020-12-01 05:55] LABS: HEMATOCRIT 30.1 % (39.0-50.0); HEMOGLOBIN 9.1 g/dl (14.0-18.0)
[2020-12-01 06:04] LABS: ANION GAP 9 (6-22 (CALC)); CARBON DIOXIDE 28 mmol/l (22-30); TOTAL PROTEIN 5.7 g/dL (6.3-8.2)
[2020-12-01 11:15] VITALS: BP 121/61
[2020-12-01 14:50] VITALS: BP 142/61
[2020-12-01 19:00] VITALS: BP 138/59
[2020-12-02] VITALS: BP 145/82
[2020-12-02 04:00] VITALS: BP 135/79
[2020-12-02 05:19] LABS: HEMOGLOBIN 8.7 g/dl (14.0-18.0); IMMATURE GRANULOCYTES 0.2 % (0.0-5.0); MEAN CELL VOLUME 94.8 fL CALC (80.0-100.0); MEAN CORPUSCULAR HGB 28.4 pG CALC (26.0-32.0); NEUT# 3.11 thou/uL (1.82-7.42); RED BLOOD COUNT 3.06 mill/uL (4.70-6.10); RED CELL DISTRI WIDTH 13.7 % (11.5-15.5)
[2020-12-02 05:58] LABS: ALKALINE PHOSPHATASE 104 u/l (38-126); ANION GAP 8 (6-22 (CALC)); BUN 20 mg/dL (8-23); BUN/CREATININE RATIO 25 (12-20 (CALC)); C-REACTIVE PROTEIN 2.6 mg/dL (0-0.9); CARBON DIOXIDE 28 mmol/l (22-30); CHLORIDE 105 mmol/l (95-108); CREATININE 0.8 mg/dL (0.7-1.3); GFR > 60 ML/MIN (>=60 (CALC)); GFR FOR AFR.AMER. > 60 ML/MIN (>=60 (CALC)); POTASSIUM 4.5 mmol/l (3.5-5.1); SGOT/AST 46 u/l (19-48); SODIUM 136 mmol/l (137-146); TOTAL PROTEIN 5.7 g/dL (6.3-8.2)
[2020-12-02 12:18] VITALS: BP 119/58
[2020-12-02 17:29] VITALS: BP 146/89
[2020-12-02 20:00] VITALS: BP 128/83
[2020-12-03] VITALS (7 sets, daily range): BP systolic 117–152; BP diastolic 66–86
[2020-12-03 06:50] LABS: HEMATOCRIT 28.7 % (39.0-50.0); HEMOGLOBIN 8.5 g/dl (14.0-18.0); IMMATURE GRANULOCYTES 0.3 % (0.0-5.0); MEAN CELL VOLUME 96.6 fL CALC (80.0-100.0); MEAN CORPUSCULAR HGB 28.6 pG CALC (26.0-32.0); MEAN CORPUSCULAR HGB CONC 29.6 g/dL CAL (32.0-36.0); NEUT# 2.19 thou/uL (1.82-7.42); RED BLOOD COUNT 2.97 mill/uL (4.70-6.10); RED CELL DISTRI WIDTH 14.1 % (11.5-15.5)
[2020-12-03 07:16] LABS: ALBUMIN 2.9 g/dL (3.2-5.0); ALKALINE PHOSPHATASE 88 u/l (38-126); ANION GAP 10 (6-22 (CALC)); BUN 16 mg/dL (8-23); BUN/CREATININE RATIO 22 (12-20 (CALC)); CARBON DIOXIDE 28 mmol/l (22-30); CHLORIDE 107 mmol/l (95-108); CREATININE 0.7 mg/dL (0.7-1.3); GFR > 60 ML/MIN (>=60 (CALC)); GFR FOR AFR.AMER. > 60 ML/MIN (>=60 (CALC)); SGOT/AST 36 u/l (19-48); SODIUM 139 mmol/l (137-146); TOTAL PROTEIN 5.4 g/dL (6.3-8.2)
[2020-12-04 04:13] VITALS: BP 147/75
[2020-12-04 05:28] LABS: HEMATOCRIT 30.6 % (39.0-50.0); HEMOGLOBIN 8.9 g/dl (14.0-18.0); MEAN CELL VOLUME 96.5 fL CALC (80.0-100.0); MEAN CORPUSCULAR HGB 28.1 pG CALC (26.0-32.0); MEAN CORPUSCULAR HGB CONC 29.1 g/dL CAL (32.0-36.0); NEUT# 1.83 thou/uL (1.82-7.42); RED BLOOD COUNT 3.17 mill/uL (4.70-6.10); RED CELL DISTRI WIDTH 13.9 % (11.5-15.5)
[2020-12-04 05:51] LABS: ALKALINE PHOSPHATASE 93 u/l (38-126); ANION GAP 9 (6-22 (CALC)); BUN 15 mg/dL (8-23); BUN/CREATININE RATIO 22 (12-20 (CALC)); C-REACTIVE PROTEIN 7.3 mg/dL (0-0.9); CARBON DIOXIDE 32 mmol/l (22-30); CHLORIDE 104 mmol/l (95-108); CREATININE 0.7 mg/dL (0.7-1.3); GFR > 60 ML/MIN (>=60 (CALC)); GFR FOR AFR.AMER. > 60 ML/MIN (>=60 (CALC)); POTASSIUM 4.7 mmol/l (3.5-5.1); SGOT/AST 29 u/l (19-48); SODIUM 140 mmol/l (137-146); TOTAL PROTEIN 5.6 g/dL (6.3-8.2)
[2020-12-04 09:36] VITALS: BP 165/88
[2020-12-04 11:00] VITALS: BP 147/91
[2020-12-04 15:00] VITALS: BP 159/78
[2020-12-04 19:00] VITALS: BP 120/81
[2020-12-05] VITALS: BP 149/86
[2020-12-05 04:21] VITALS: BP 146/78
[2020-12-05 06:03] LABS: HEMATOCRIT 30.8 % (39.0-50.0); HEMOGLOBIN 8.9 g/dl (14.0-18.0); IMMATURE GRANULOCYTES 0.3 % (0.0-5.0); MEAN CELL VOLUME 96.6 fL CALC (80.0-100.0); MEAN CORPUSCULAR HGB 27.9 pG CALC (26.0-32.0); MEAN CORPUSCULAR HGB CONC 28.9 g/dL CAL (32.0-36.0); NEUT# 2.04 thou/uL (1.82-7.42); RED BLOOD COUNT 3.19 mill/uL (4.70-6.10); RED CELL DISTRI WIDTH 13.5 % (11.5-15.5)
[2020-12-05 06:08] LABS: ALKALINE PHOSPHATASE 88 u/l (38-126); ANION GAP 8 (6-22 (CALC)); BUN 17 mg/dL (8-23); BUN/CREATININE RATIO 25 (12-20 (CALC)); CARBON DIOXIDE 34 mmol/l (22-30); CHLORIDE 103 mmol/l (95-108); CREATININE 0.7 mg/dL (0.7-1.3); GFR > 60 ML/MIN (>=60 (CALC)); GFR FOR AFR.AMER. > 60 ML/MIN (>=60 (CALC)); POTASSIUM 4.4 mmol/l (3.5-5.1); SGOT/AST 25 u/l (19-48); SODIUM 140 mmol/l (137-146); TOTAL PROTEIN 5.5 g/dL (6.3-8.2)
[2020-12-05 06:10] LABS: BILIRUBIN, TOTAL 0.1 mg/dL (0.0-1.4)
[2020-12-05 06:45] VITALS: BP 146/74
[2020-12-05 11:16] VITALS: BP 165/86
[2020-12-05 11:47] VITALS: BP 142/80
[2020-12-05] MEDS ORDERED: ZITHROMAX250 MG PO (12:32)
[2020-12-05] MEDS ORDERED: DEXAMETHASON6 MG PO (12:32)
[2020-12-05] MEDS ORDERED: TRAMADOL HCL50 MG PO (12:32)
[2020-12-05] MEDS ORDERED: DICYCLOMINE HCL10 MG PO (12:32)
[2020-12-05] MEDS ORDERED: PANTOPRAZOLE SO40 M1 PO (12:32)
[2020-12-05] MEDS ORDERED: ASPIRIN 81 LOW81 MG PO (15:08)
== END 2020-12-05 15:40 | DRG 177 ==
LOC: ED 10:08 → ED-I 11:31 → ED 14:37 → ED-I 14:38 → MS2 11-30 14:54
PROVIDERS: Emergency Medicine; Nurse Practitioner; ADMIT Hospitalist; ATTEND Hospitalist
PROC: XW033E5 Introduction of Remdesivir Anti-infective into Peripheral Vein, Percutaneous Approach, New Technology Group 5 (ICD-10-PCS; principal; 2020-11-29)
DX: U07.1 COVID-19 (principal); J12.82 Pneumonia due to coronavirus disease 2019; J96.01 Acute respiratory failure with hypoxia; J44.0 Chronic obstructive pulmonary disease with (acute) lower respiratory infection; I11.0 Hypertensive heart disease with heart failure; I50.9 Heart failure, unspecified; D64.9 Anemia, unspecified; K21.9 Gastro-esophageal reflux disease without esophagitis; I25.10 Atherosclerotic heart disease of native coronary artery without angina pectoris; F03.90 Unspecified dementia, unspecified severity, without behavioral disturbance, psychotic disturbance, mood disturbance, and anxiety; E03.9 Hypothyroidism, unspecified; H35.30 Unspecified macular degeneration; H54.61 Unqualified visual loss, right eye, normal vision left eye; N40.0 Benign prostatic hyperplasia without lower urinary tract symptoms; E78.5 Hyperlipidemia, unspecified; F32.9 Major depressive disorder, single episode, unspecified; F41.1 Generalized anxiety disorder; Z95.5 Presence of coronary angioplasty implant and graft; Z87.11 Personal history of peptic ulcer disease; R13.10 Dysphagia, unspecified; R11.0 Nausea; R63.0 Anorexia; R68.81 Early satiety
CPT/HCPCS: G0378; J1650; Q9967; S0164

== ENCOUNTER 2021-06-14 22:40 | Emergency (ER) | payer MEDICARE ==
[~2021-06-14] VITALS: Ht 170.2 cm; Wt 82.0 kg
[~2021-06-14 22:40] MED LIST changes: +ALL DAY10 MG PO; +ASPIRIN 81 LOW81 MG PO; +COLACE100 MG PO; +DAILY PROBIOTI250 MG PO; +DEXAMETHASON6 MG PO; +DICYCLOMINE HCL10 MG PO; +FLUOXETINE10 M2 PO; +MEMANTINE HYDRO10 MG PO; +MIRALAX17 GM PO; +MIRTAZAPINE15 MG PO; +PANTOPRAZOLE SO40 M1 PO; +POTASSIUM CHLO10 ME4 PO; +SIMBRINZA1 SUS OU; +SOD CHLORIDE1 G2 PO
[2021-06-14 22:56] VITALS: BP 131/71
[2021-06-14 23:16] VITALS: BP 175/86
[2021-06-14 23:22] LABS: HEMOGLOBIN 10.8 g/dl (14.0-18.0); IMMATURE GRANULOCYTES 0.3 % (0.0-5.0); MEAN CELL VOLUME 92.3 fL CALC (80.0-100.0); MEAN CORPUSCULAR HGB 27.7 pG CALC (26.0-32.0); NEUT# 6.49 thou/uL (1.82-7.42); RED BLOOD COUNT 3.9 mill/uL (4.70-6.10); RED CELL DISTRI WIDTH 14.3 % (11.5-15.5)
[2021-06-14 23:31] VITALS: BP 134/117
[2021-06-14 23:33] VITALS: BP 134/59
[2021-06-14 23:40] LABS: ALKALINE PHOSPHATASE 125 u/l (38-126); ANION GAP 13 (6-22 (CALC)); BUN 15 mg/dL (8-23); BUN/CREATININE RATIO 15 (12-20 (CALC)); CARBON DIOXIDE 27 mmol/l (22-30); CHLORIDE 100 mmol/l (95-108); CPK 341 u/l (52-200); GFR > 60 ML/MIN (>=60 (CALC)); GFR FOR AFR.AMER. > 60 ML/MIN (>=60 (CALC)); POTASSIUM 4.5 mmol/l (3.5-5.1); SGOT/AST 25 u/l (19-48); SODIUM 135 mmol/l (137-146)
[2021-06-14 23:46] VITALS: BP 98/52
[2021-06-14 23:47] LABS: BILIRUBIN, TOTAL 0.6 mg/dL (0.0-1.4)
[2021-06-15] VITALS (15 sets, daily range): BP systolic 100–143; BP diastolic 51–83
== END 2021-06-15 08:00 | disposition home or self-care (01) ==
LOC: ED 22:40
PROVIDERS: Emergency Medicine
DX: J44.1 Chronic obstructive pulmonary disease with (acute) exacerbation (principal); I11.0 Hypertensive heart disease with heart failure; I50.9 Heart failure, unspecified; E78.00 Pure hypercholesterolemia, unspecified; H35.30 Unspecified macular degeneration; H54.61 Unqualified visual loss, right eye, normal vision left eye; F03.90 Unspecified dementia, unspecified severity, without behavioral disturbance, psychotic disturbance, mood disturbance, and anxiety; Z95.5 Presence of coronary angioplasty implant and graft; Z20.822 Contact with and (suspected) exposure to COVID-19

== ENCOUNTER 2022-04-10 16:46 | Emergency (ER) | payer MEDICARE ==
[~2022-04-10] VITALS: Ht 170.2 cm; Wt 85.0 kg
[2022-04-10] VITALS (7 sets, daily range): BP systolic 109–152; BP diastolic 54–84
[2022-04-10 19:53] LABS: HEMOGLOBIN 12.5 g/dl (14.0-18.0); LYMPH% 25.8 % (15-41); MEAN CELL VOLUME 91.1 fL CALC (80.0-100.0); MEAN CORPUSCULAR HGB 30.8 pG CALC (26.0-32.0); MEAN CORPUSCULAR HGB CONC 33.8 g/dL CAL (32.0-36.0); MONO% 13.7 % (2-13); NEUT# 3.39 thou/uL (1.82-7.42); NEUT% 57.5 % (42-76); RED BLOOD COUNT 4.06 mill/uL (4.70-6.10)
[2022-04-10 20:01] LABS: ALBUMIN 4.1 g/dL (3.2-5.0); ALKALINE PHOSPHATASE 110 u/l (38-126); ANION GAP 15 (6-22 (CALC)); BILIRUBIN, TOTAL 0.6 mg/dL (0.0-1.4); BUN 14 mg/dL (8-23); BUN/CREATININE RATIO 15 (12-20 (CALC)); CARBON DIOXIDE 26 mmol/l (22-30); CHLORIDE 93 mmol/l (95-108); CREATININE 0.9 mg/dL (0.7-1.3); GFR FOR AFR.AMER. > 60 ML/MIN (>=60 (CALC)); GFR OTHER RACES > 60 ML/MIN (>=60 (CALC)); POTASSIUM 4.2 mmol/l (3.5-5.1); SGOT/AST 28 u/l (19-48); SODIUM 130 mmol/l (137-146); TOTAL PROTEIN 6.5 g/dL (6.3-8.2)
[2022-04-10 20:22] LABS: ETHYL ALCOHOL 0 mg/dl (0-30)
[2022-04-10] MEDS ORDERED: SERTRALINE25 MG PO (20:29)
[2022-04-10] MEDS ORDERED: LOSARTAN POTASS50 MG PO (20:33)
[2022-04-10] MEDS ORDERED: VITAMIN B-12500 MCG PO (20:35)
[2022-04-10] MEDS ORDERED: SOD CHLORIDE1 G2 (20:37)
[2022-04-10] MEDS ORDERED: BUSPAR5 MG PO (20:39)
[2022-04-10] MEDS ORDERED: POLY-IRON150 MG PO (20:40)
[2022-04-10] MEDS ORDERED: REMERON15 MG PO (20:42)
[2022-04-11] VITALS (17 sets, daily range): BP systolic 83–137; BP diastolic 33–71
[2022-04-11 00:29] LABS: URINE BILIRUBIN - DIPSTICK NEGATIVE (NEGATIVE); URINE BLOOD DIPSTICK TRACE-INTACT (NEGATIVE); URINE COLOR YELLOW; URINE GLUCOSE - DIPSTICK NEGATIVE (NEGATIVE); URINE KETONE 15 mg/dL (NEGATIVE); URINE LEUK ESTERASE NEGATIVE (NEGATIVE); URINE NITRITE - DIPSTICK NEGATIVE (Negative); URINE PH 5.5 (4.5-8.0); URINE PROTEIN - DIPSTICK NEGATIVE (NEG-TRACE); URINE SPECIFIC GRAVITY 1.025
== END 2022-04-11 07:05 ==
LOC: ED 16:46
PROVIDERS: Emergency Medicine; Family Medicine
DX: R45.851 Suicidal ideations (principal); F32.9 Major depressive disorder, single episode, unspecified; I10 Essential (primary) hypertension; F03.90 Unspecified dementia, unspecified severity, without behavioral disturbance, psychotic disturbance, mood disturbance, and anxiety; E78.00 Pure hypercholesterolemia, unspecified; H54.61 Unqualified visual loss, right eye, normal vision left eye; H35.30 Unspecified macular degeneration; Z95.5 Presence of coronary angioplasty implant and graft; Z20.822 Contact with and (suspected) exposure to COVID-19